=== PATIENT | female | born 1950 | race African-American/Black ===

== ENCOUNTER 2024-02-02 09:41 | Outpatient (CLI) | payer OTHER, MEDICARE, SELFPAY ==
[2024-02-02 09:45] VITALS: BMI 21.9
[2024-02-02 10:45] VITALS: BP 109/71; PULSE 101; RESP 18; TEMP 36.3; O2SAT 97
--- NOTE | 2024-02-02 11:06 | SUR.PREOP ---
Times - Time Out Called: 1053 Procedure Start: 1054 Procedure End:1056 Position and Devices - Position: supine Positioning Devices:pillow under pt's head Pre-Procedure Assessment - Site and Procedure Verified w Patient and/or Others as Appropriate:y Verification Coincides w Consent, H&P, Endoscopy Schedule, and Pre-Op Orders:y X-Rays/Imaging Studies in Room and/or Implants on Site:y Verified Operative Side Marked YES When Applicable:n Preop Assessment Completed By:valeria Du Out - Entire Operative Team Participates and Confirms: y Correct Patient, Procedure, Side/Site and Position: y Availability of Implants, Special Equipment and Requests:y Preop Antibiotics Given within 1 Hour of Incision:n Assessment of Skin Prep Dry Time:y Prep = Surgery Prep Solution:betadine solution Site Prepped:abdomen Prepped By:Dr. Hollingsworth Staff - Child Support Agent:valeria Composite Assembler: Non Pharmacy Medications - Time: Name: Strength: Dose: Route: Site: Given By: Lot Number: Expiration Date: Actual Procedures - Description:Removal of gastrostomy tube and replacement of 18 fr gastrostomy tube Side: Wound Class: Surgeon:Darrick Severity: Preop Diagnosis:displaced gastrostomy tube Postop Diagnosis:gastrostomy tube Transfer Data - Destination:[facility] Transfer Method:stretcher Complications: Untoward Events: Report Given To:Monisha [facility] Rehab Completed Date/Time:02/02/2024 1110 Completed By:valeria HERRERA
--- NOTE | 2024-02-02 11:11 | P.HP_ITS ---
History of Present Illness History of Present Illness Consent: Risks, benefits, and alternatives have been discussed and questions answered. Patient agrees to proceed with procedure. Chief complaint: displaced Gastrostomy tube Narrative: Shanta Galeana is a 73 year old female with h/o hemorrhagic CVA currently in local rehab, her G-tube dislodged yesterday and currently has 18 Fr Greene catheter instead. She is able to have some nutrition by mouth but still using G- tube as extra Review of Systems Review of Systems: All systems reviewed & are unremarkable except as noted in HPI and below PMFSH Past Medical History Medical History (Updated 02/02/24 @ 11:13 by Chong Jimenez MD) Dislodged gastrostomy tube Family History Family History Mother Hypertension Social History Social History Smoking status: Never smoker Alcohol intake: former Substance use: never Substance use type: does not use Living arrangements: other Additional living arrangements comments: REHAB. Spiritual care concerns: No Meds Home Medications and Allergies Home Medications Medication Instructions Recorded Confirmed Type amlodipine 10 mg tablet 10 mg feeding tube DAILY 01/27/24 02/02/24 History lisinopril 5 mg tablet 5 mg feeding tube DAILY 01/27/24 02/02/24 History amantadine HCl 100 mg tablet 100 mg feeding tube DAILY 02/02/24 02/02/24 History heparin (porcine) 5,000 unit/mL 5,000 unit subcut Q12H 02/02/24 02/02/24 History injection solution insulin lispro 100 unit/mL 1 sliding scale dose subcut 02/02/24 02/02/24 History subcutaneous solution USEASDIRECTD rosuvastatin 40 mg tablet 40 mg feeding tube DAILY 02/02/24 02/02/24 History trazodone 100 mg tablet 100 mg feeding tube HS 02/02/24 02/02/24 History Allergies Allergy/AdvReac Type Severity Reaction Status Date / Time No Known Allergies Allergy Verified 02/02/24 11:05 Exam Const: General: no acute distress HENMT: Ears: TM's normal bilaterally Eyes: General: appearance normal, both eyes and all related structures Neck: Neck: supple Resp: Effort & Inspection: normal respiratory effort Auscultation: clear to auscultation bilaterally Cardio: Rate: regular rate Rhythm: regular rhythm GI: Other: greene catheter at gastrostomy site, soft abdomen, + BS Back/Spine/Pelvis: Other: s/p craniotomy, awake and alert Skin: General skin exam: normal color Neuro: Cranial nerves: Yes Equal, round and reactive pupils present Other: Oriented to self only follows basic commands with Hallucinations Assessment and Plan Assessment and plan (1) Dislodged gastrostomy tube: Code(s): T85.528A - Displacement of other gastrointestinal prosthetic devices, implants and grafts, initial encounter Status: Acute Assessment and Plan: will replace for a new G-tube at bedside (2) CVA (cerebral vascular accident): Code(s): I63.9 - Cerebral infarction, unspecified Status: Acute
--- NOTE | 2024-02-02 11:13 | W.PM.PROC2 ---
Procedure Note - Detailed Date of Procedure 02/02/24 Pre-op Diagnosis displaced Gastrostomy tube Post-op Diagnosis Same Procedure Performed replacement of G-tube Surgeon Chong Jimenez MD Anesthesia None Description of Procedure greene catheter was removed after deflated balloon. Then using same gastrostomy site I advanced 18 Fr G-tube, balloon insuflated with 6 ml water and secure in position at 5 cm. Then it was flushed and noted gastric content when was suctioned back. Ok to resume tube feeding as usual, she is going back to rehab
--- NOTE | 2024-02-02 11:17 | SUR.PREOP ---
[facility] Report given to Monisha HERRERA regarding discharge instructions including resuming of all medications and resuming of g-tube feedings. RN voiced understanding.
== END 2024-02-02 11:05 | disposition short-term general hospital (02) ==
PROVIDERS: Visit Provider Internal Medicine Gastroenterology
PROC: 0DH63UZ Insertion of Feeding Device into Stomach, Percutaneous Approach (ICD-10-PCS; CPT 43246; principal; 2024-02-02 12:00)
DX: T85.528A Displacement of other gastrointestinal prosthetic devices, implants and grafts, initial encounter (principal); I63.9 Cerebral infarction, unspecified
CPT/HCPCS: 43762; 99212; G0463

== ENCOUNTER 2024-03-04 09:49 | Inpatient (IN) | payer MEDICARE, OTHER, SELFPAY ==
[2024-03-04] VITALS (24 sets, daily range): BP systolic 100–136; BP diastolic 63–97; PULSE 81–113; RESP 16–24; TEMP 35.9–37.4; O2SAT 91–100; BMI 20.7
--- NOTE | ~2024-03-04 | CT_ITS ---
EXAMINATION: CT abdomen pelvis w con DATE: 03/04/2024 11:52 INDICATION: Urinary tract infection. Fever, sepsis TECHNIQUE: Computed tomography (CT) of the abdomen and pelvis was performed with 100 CC Omnipaque 350 intravenous contrast. Automated exposure control and iterative reconstruction technique were employe d. Exam dose: 433.33 mGy-cm total exam DLP. COMPARISON: None. FINDINGS: There is bibasilar predominantly lower lobe and lingular atelectasis. Cardiomegaly. Monitor device is noted within the left breast. No pericardial or pleural effusion. Diffuse hepatic steatosis. No hepatic, splenic, pancreatic or adrenal space-occupying mass lesion is detected. The gallbladder appears unremarkable. No gallbladder wall thickening or pericholecystic fluid or fat stranding. No bile duct or pancreatic duct dilatation. No renal mass lesion or urinary tract calculus or hydroureteronephrosis. There is mild diffuse thicke citlali of the bladder wall. No fat stranding is noted around the urinary bladder. No intraluminal mass lesion of the urinary bladder is evident.. There is calcification of normal caliber of the abdominal aorta. No intraperitoneal or retroperitonea l pelvic mass lesion or adenopathy or ascites. Gastrostomy tube within the lower body of the stomach. Normal appendix. No bowel obstruction, bowel wall thickening, pneumatosis or intraperitoneal free air is detected. Left inguinal fat-containing hernia. Small fat-containing umbilical hernia. Diffuse osteopenia and moderate anterior wedge compression fracture deformities of T10, L3 and to a l alex extent L5. IMPRESSION: Cardiomegaly Hepatic steatosis Gastrostomy tube within lower gastric body Normal appendix Mild diffuse thickening of urinary bladder wall; cystitis is not excluded. Fat-containing left inguinal and umbilical hernias Compression fracture deformity of T10, L3 and L5 Reviewed, dictated and finalized at [facility]. Reviewed, dictated and finalized at [facility].
--- NOTE | ~2024-03-04 | US_ITS ---
US abdomen limited INDICATION: Elevated liver enzymes PROCEDURE: Realtime right upper abdominal ultrasound. COMPARISON: No prior studies for comparison. FINDINGS: The pancreas is normal without focal mass or pancreatic ductal dilation. Liver echotexture is normal without focal mass or intrahepatic biliary dilatation. There is normal directional flow i n the portal vein. The gallbladder is normal without stones, gallbladder wall thickening or pericholecystic fluid. Comm on bile duct measures 4 mm. No sonographic Ram's sign. IMPRESSION: 1: Normal limited abdominal ultrasound. Reviewed, dictated and finalized at [facility].
--- NOTE | ~2024-03-04 | XR_ITS ---
XR chest 1V portable DATE: 03/04/2024 10:09 INDICATION: Fever, sepsis TECHNIQUE: Portable supine AP view on March 04, 2024 at 1004 hours COMPARISON: None FINDINGS: There is mild infiltrate or atelectasis at the left lung base and to a lesser extent right lung base. Normal heart size. Aortic calcification and mild unfolding. No hilar or mediastinal enlargement. No pleural effusion or pulmonary vascular congestion or pneumoth orax is detected. IMPRESSION: Mild left and minimal right basilar infiltrate or atelectasis Reviewed, dictated and finalized at [facility].
--- NOTE | 2024-03-04 09:57 | ED.FEVER ---
HPI - Fever General Chief Complaint: Fever <MARLO Henry Last Filed: 03/04/24 13:11> Stated Complaint: Fever <MARLO Henry Last Filed: 03/04/24 13:11> Source: patient and old records reviewed <Jade Cruz PA-C - Last Filed: 03/04/24 13:11> Mode of arrival: EMS <MARLO Henry Last Filed: 03/04/24 13:11> Limitations: physical limitation and clinical condition <MARLO Henry Last Filed: 03/04/24 13:11> History of Present Illness HPI Narrative: Patient is a 73 y/o female, with PMH of CVA s/p craniotomy, G-tube, DM, who presents to the ED via EMS with report of fever. Patient is a resident of [facility]. She is A&OX1 at baseline and currently. Per EMS report, ID called for EMS today due to patient having a fever up to 102.2. She was not given anything for her fever. Per [facility] report, patient was recently started on Macrobid for a UTI. Patient unable to provide any information. <MARLO Henry Last Filed: 03/04/24 13:11> Related Data Home Medications: Home Medications Medication Instructions Recorded Confirmed amlodipine 10 mg tablet 10 mg feeding tube DAILY 01/27/24 03/04/24 acetaminophen 325 mg tablet 650 mg feeding tube Q4H PRN Mild 03/04/24 03/04/24 Pain (1-3) Or Fever alprazolam 0.5 mg tablet 0.5 mg feeding tube Q8H PRN 03/04/24 03/04/24 Agitation amantadine HCl 100 mg capsule 100 mg feeding tube BID 03/04/24 03/04/24 atorvastatin 40 mg tablet 40 mg feeding tube HS 03/04/24 03/04/24 bisacodyl 10 mg rectal suppository 10 mg RECTAL DAILY PRN Constipation 03/04/24 03/04/24 (Dulcolax (bisacodyl)) heparin (porcine) 5,000 unit/mL 5,000 unit subcut DAILY 03/04/24 03/04/24 injection solution hydroxyzine pamoate 50 mg capsule 50 mg PO PRN PRN Anxiety 03/04/24 03/04/24 insulin glargine 100 unit/mL (3 8 unit subcut DAILY 03/04/24 03/04/24 mL) subcutaneous pen (Lantus Solostar U-100 Insulin) insulin lispro 100 unit/mL 3 - 6 unit subcut TIDWM 03/04/24 03/04/24 subcutaneous solution (Humalog U-100 Insulin) melatonin 3 mg tablet 6 mg feeding tube HS PRN Insomnia 03/04/24 03/04/24 mirtazapine 7.5 mg tablet 7.5 mg feeding tube DAILY 03/04/24 03/04/24 olanzapine 10 mg tablet 10 mg feeding tube DAILY 03/04/24 03/04/24 trazodone 50 mg tablet 50 mg PO HS PRN Insomnia 03/04/24 03/04/24 <Jade Cruz PA-C - Last Filed: 03/04/24 13:11> Allergies/Adverse Reactions: Allergies Allergy/AdvReac Type Severity Reaction Status Date / Time No Known Allergies Allergy Verified 02/02/24 11:05 <Jade Cruz PA-C - Last Filed: 03/04/24 13:11> Review of Systems Review of Systems: ROS unobtainable: Yes unobtainable due to medical condition and unobtainable due to mental status <Jade Cruz PA-C - Last Filed: 03/04/24 13:11> [facility] Past Medical History Medical History: Medical History (Updated 03/04/24 @ 17:02 by Hattie Mckeon PA-C) Cancer of right breast Hemorrhagic stroke (01/2024) With left-sided hemiparesis and cognitive deficits. Ischemic stroke Type 2 diabetes mellitus <Jade Cruz PA-C - Last Filed: 03/04/24 13:11> Surgical History Surgical History: Surgical History (Updated 03/04/24 @ 16:54 by Hattie Mckeon PA-C) History of cataract extraction History of craniotomy (01/2024) History of evacuation of hematoma (01/2024) History of hysterectomy History of loop recorder History of lumpectomy of right breast <Jade Cruz PA-C - Last Filed: 03/04/24 13:11> Family History Family History: Family History Mother Hypertension <Jade Cruz PA-C - Last Filed: 03/04/24 13:11> Social History Social History: Social History (Updated 03/04/24 @ 16:55 by Hattie Mckeon PA-C) Social History: Surrogate medical decision maker: Denise
[2024-03-04] MEDS: SODIUM CHLORIDE 0.9% IV 1,000 ML 999 ML IV CONT ×2 (10:11→11:00)
[2024-03-04] MEDS: ACETAMINOPHEN ELIXIR 325 MG/10.15 ML UDC 650 MG FEED TUBE ×2 (10:11→20:31)
[2024-03-04 10:27] LABS: Appearance Urine Turbid (Clear); Bacteria Urine 4+ /hpf; Bilirubin Urine Negative (Negative); Blood Urine Trace (Negative); Color Urine Yellow (Yellow); Glucose Urine UA Negative (Negative); Ketones Urine Negative (Negative); Leukocyte Esterase Ur 3+ LEU/UL (Negative); Nitrate Urine Positive (Negative); Protein Urine 1+ mg/dL (Negative); RBC Urine 0-2 /hpf (0-2); Specific Grav Ur 1.015 (1.001-1.035); Squamous Epithelial Cell Urine None Seen /hpf (Few); Urobilinogen Urine 0.2 mg/dL (<2.0); WBC Urine >100 /hpf (0-3); pH Urine 5.5 (5.0-9.0)
[2024-03-04 10:29] LABS: Add Urine Microscopic? YES
[2024-03-04 10:47] LABS: Basophils Percent Auto 0.5 % (0.2-1.2); Eosinophils Percent Auto 0.3 % (0-4.4); Hematocrit 32.6 % (37.0-47.0); Hemoglobin 9.7 g/dL (12.0-15.0); Immature Granulocyte Absolute 0.04 K/mm3 (0.00-0.031); Immature Granulocyte Percent A 0.5 % (0-0.5); Lymphocytes Absolute Auto 1.73 K/mm3 (0.9-3.2); Lymphocytes Percent Auto 19.6 % (18.3-44.2); Mean Corpuscular HGB Conc 29.8 g/dl (32-36); Mean Corpuscular Hemoglobin 29.1 pg (26-34); Mean Corpuscular Volume 97.9 fl (80-100); Mean Platelet Volume 9.4 fl (7.4-10.4); Monocytes Percent Auto 11.2 % (2.6-8.5); Neutrophils Percent Auto 67.9 % (45.5-73.1); Platelet Count Result 251 k/mm3 (150-375); Red Blood Count 3.33 M/mm3 (4.2-5.4); Red Cell Distribution Width 13.5 % (11.5-14.5); White Blood Count 8.8 K/mm3 (4.5-10.0)
[2024-03-04 10:59] LABS: Lactic Acid Reflex 2.1 mmol/L (0.7-2.0)
[2024-03-04 11:00] LABS: INR 1.2; Partial Thromboplastin Time 27.9 Seconds (22.3-36.8); Prothrombin Time 15.9 Seconds (11.1-14.7)
[2024-03-04 11:05] LABS: Alanine Aminotransferase 36 U/L (6-35); Alkaline Phosphatase 105 U/L (38-126); Anion Gap 8 mmol/L (4-12); Aspartate Amino Transferase 33 U/L (14-36); Bilirubin,Total 0.9 mg/dL (0.2-1.3); Blood Urea Nitrogen 39 mg/dL (7-17); CRP < 0.5 mg/dL (<1.0); Calcium 9.8 mg/dL (8.4-10.2); Carbon Dioxide 27 mmol/L (22-30); Chloride 131 mmol/L (98-107); Estimated CRCL calculation 25 ml/min; Estimated Glomerular Filt Rate 41; Glucose 207 mg/dL (65-110); Potassium 3.5 mmol/L (3.4-5.0); Sodium 166 mmol/L (137-145)
[2024-03-04 11:14] LABS: Anisocytosis 1+; Platelet Estimate Adequate (Adequate); Polychromasia 1+
[2024-03-04 11:15] LABS: Schistocytes Rare
[2024-03-04 11:23] LABS: Influenza A QL RT-PCR Negative (Negative); Influenza B QL RT-PCR Negative (Negative); RSV RNA, RT-PCR Negative (Negative); SARS-CoV-2 RNA PCR Negative (Negative)
[2024-03-04 12:18] LABS: Procalcitonin 0.1 ng/mL
[2024-03-04 12:55] LABS: Anion Gap 10 mmol/L (4-12); Blood Urea Nitrogen 35 mg/dL (7-17); Carbon Dioxide 21 mmol/L (22-30); Chloride 132 mmol/L (98-107); Estimated CRCL calculation 30 ml/min; Estimated Glomerular Filt Rate 53; Glucose 161 mg/dL (65-110); Potassium 3.7 mmol/L (3.4-5.0); Sodium 163 mmol/L (137-145)
[2024-03-04 13:44] LABS: Reflex Lactic Acid Yes or No Add Lactic
--- NOTE | 2024-03-04 13:52 | PC.NURSE ---
This patient, Shanta Galeana, was admitted to Medical Room 240-01. Patient/family oriented to hospital policies and general routines including ID bracelet, bed and alarms, visiting hours, pain management, procedures, bathroom and other care routines, personal items, smoking policy, room service/diet, and visiting hours. Information on how to activate the Rapid Response Team has been discussed. Patient/Family are encouraged to report perceived risks to care and to ask questions if they do not understand what they are told or what they should do.
[2024-03-04] MEDS: SODIUM CHLORIDE 0.45% 1,000 ML 55 ML IV CONT (14:14)
--- NOTE | 2024-03-04 14:20 | PM.IMHP ---
H&P: HPI History of Present Illness Date/Time: 03/04/24 14:45 Chief Complaint: Fever. Narrative: This is a 73-year-old female who suffered a hemorrhagic stroke in January 2024 with residual left-sided weakness and cognitive deficits, hypertension, type 2 diabetes mellitus, and anemia who presented to the emergency department via EMS from [facility] for evaluation of a fever. She is unable to provide history and the following is obtained from her EMR as well as information provided by her daughter. She was discharged to [place] on 02/17/2024 after a several week stay at [facility] and according to the patient's daughter, she has been getting along pretty well. She has limited conversations with her daughter but her mentation is much different than prior to the stroke. She is able to eat a soft diet but the facility supplements using a PEG tube if she eats less than 50% of her meal. Today the patient's daughter received a phone call that she was being sent to the emergency department after developing a fever with concerns for a urinary tract infection. She was afebrile on arrival with stable vital signs. Labs were significant for a hemoglobin of 9.7, sodium 166, chloride 131, BUN 39, creatinine 1.50, glucose 207, lactic acid 2.1. Urine was was positive nitrates, leukocyte esterase, bacteria, and greater than 100 WBC were seen on microscopy. Chest x-ray showed mild left and minimal right basilar infiltrate or atelectasis. CT of the abdomen and pelvis did not show any acute findings. She was given a 2 L normal saline bolus and is being admitted in this setting for further treatment. At the time my evaluation she is alert. She does not follow commands or directly answer questions; she babbles which daughter states is new for her. Review of Systems Review of Systems: Unable to obtain accurately given clinical condition. 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 Ischemic stroke Type 2 diabetes mellitus Surgical History Surgical History (Updated 03/04/24 @ 16:54 by Hattie Mckeon PA-C) History of cataract extraction History of craniotomy (01/2024) History of evacuation of hematoma (01/2024) History of hysterectomy History of loop recorder History of lumpectomy of right breast Family History Family History Mother Hypertension Social History Social History (Updated 03/04/24 @ 16:55 by Hattie Mckeon PA-C) Social History: Surrogate medical decision maker: Denise Galeana, daughter. Code status: Full code. Smoking status: Never smoker Alcohol intake: never Substance use: never Substance use type: does not use Living arrangements: [facility] Spiritual care concerns: No Meds Home Medications and Allergies Home Medications Medication Instructions Recorded Confirmed Type amlodipine 10 mg tablet 10 mg feeding tube DAILY 01/27/24 03/04/24 History acetaminophen 325 mg tablet 650 mg feeding tube Q4H PRN Mild 03/04/24 03/04/24 History Pain (1-3) Or Fever alprazolam 0.5 mg tablet 0.5 mg feeding tube Q8H PRN 03/04/24 03/04/24 History Agitation amantadine HCl 100 mg capsule 100 mg feeding tube BID 03/04/24 03/04/24 History atorvastatin 40 mg tablet 40 mg feeding tube HS 03/04/24 03/04/24 History bisacodyl 10 mg rectal suppository 10 mg RECTAL DAILY PRN Constipation 03/04/24 03/04/24 History (Dulcolax (bisacodyl)) heparin (porcine) 5,000 unit/mL 5,000 unit subcut DAILY 03/04/24 03/04/24 History injection solution hydroxyzine pamoate 50 mg capsule 50 mg PO PRN PRN Anxiety 03/04/24 03/04/24 History insulin glargine 100 unit/mL (3 8 unit subcut DAILY 03/04/24 03/04/24 History mL) subcutaneous pen (Lantus Solostar U-100 Insulin) insulin lispro 100 unit/mL 3 - 6
[2024-03-04 14:28] LABS: Lactic Acid 1.4 mmol/L (0.7-2.0)
[2024-03-04 17:12] LABS: Glucose Point of Care 153 mg/dl (65-105)
[2024-03-04 17:39] LABS: Hemoglobin A1C 6.1 % (<5.7)
[2024-03-04 17:41] LABS: Anion Gap 8 mmol/L (4-12); Blood Urea Nitrogen 31 mg/dL (7-17); Calcium 9.4 mg/dL (8.4-10.2); Carbon Dioxide 25 mmol/L (22-30); Chloride 133 mmol/L (98-107); Estimated CRCL calculation 30 ml/min; Estimated Glomerular Filt Rate 59; Glucose 163 mg/dL (65-110); Potassium 3.5 mmol/L (3.4-5.0); Sodium 166 mmol/L (137-145)
[2024-03-04] MEDS: DEXTROSE 5%/0.45% SOD CHL 1,000 ML 75 ML IV CONT (18:27)
[2024-03-04] MEDS: AMANTADINE HCL 100 MG CAPSULE FEED TUBE (18:27)
[2024-03-04 20:00] LABS: Glucose Point of Care 169 mg/dl (65-105)
[2024-03-04] MEDS: MELATONIN 3 MG TABLET 6 MG FEED TUBE (20:30)
[2024-03-04] MEDS: ATORVASTATIN 40 MG TABLET FEED TUBE (20:31)
[2024-03-04 21:22] LABS: Sodium 164 mmol/L (137-145)
[2024-03-05] VITALS (10 sets, daily range): BP systolic 129–132; BP diastolic 55–78; PULSE 81–108; RESP 17–18; TEMP 35.8–36.5; O2SAT 98–100
[2024-03-05 00:01] LABS: Glucose Point of Care 208 mg/dl (65-105)
[2024-03-05] MEDS: INSULIN ASPART (*BKC) 100 UNITS/ML SUB-Q (00:50)
[2024-03-05 01:54] LABS: Sodium 160 mmol/L (137-145)
[2024-03-05 05:49] LABS: Hematocrit 33.1 % (37.0-47.0); Hemoglobin 9.6 g/dL (12.0-15.0); Mean Corpuscular Hemoglobin 29.4 pg (26-34); Mean Corpuscular Volume 101.2 fl (80-100); Mean Platelet Volume 9.6 fl (7.4-10.4); Platelet Count Result 226 k/mm3 (150-375); Red Blood Count 3.27 M/mm3 (4.2-5.4); Red Cell Distribution Width 13.6 % (11.5-14.5); White Blood Count 8.5 K/mm3 (4.5-10.0)
[2024-03-05 05:53] LABS: Glucose Point of Care 164 mg/dl (65-105)
[2024-03-05 06:28] LABS: Anion Gap 11 mmol/L (4-12); Blood Urea Nitrogen 25 mg/dL (7-17); Calcium 9.7 mg/dL (8.4-10.2); Carbon Dioxide 22 mmol/L (22-30); Chloride 131 mmol/L (98-107); Estimated CRCL calculation 36 ml/min; Estimated Glomerular Filt Rate > 60; Glucose 163 mg/dL (65-110); Magnesium 2.6 mg/dL (1.6-2.3); Potassium 3.8 mmol/L (3.4-5.0); Sodium 164 mmol/L (137-145)
[2024-03-05] MEDS: DEXTROSE 5% 1,000 ML 1,000 ML 100 ML IV CONT (08:07)
[2024-03-05] MEDS: OLANZapine 5 MG TABLET 10 MG FEED TUBE (08:09)
[2024-03-05] MEDS: MIRTAZAPINE 7.5 MG TABLET FEED TUBE (08:09)
[2024-03-05] MEDS: AMANTADINE HCL 100 MG CAPSULE FEED TUBE ×2 (08:09→17:46)
[2024-03-05] MEDS: amLODIPine BESYLATE 5 MG TABLET 10 MG FEED TUBE (08:10)
[2024-03-05 11:59] LABS: Glucose Point of Care 190 mg/dl (65-105)
--- NOTE | 2024-03-05 12:10 | PCCCNOTE ---
On 03/05/24, the student, [Rand Sanchez ], provided care and completed [facility] documentation on this patient. I have reviewed the student's documentation and agree with the findings.
[2024-03-05 12:45] LABS: Sodium 162 mmol/L (137-145)
--- NOTE | 2024-03-05 14:12 | PM.IMPN ---
Progress Note: A&P Assessment and Plan (1) Hypernatremia: Code(s): E87.0 - Hyperosmolality and hypernatremia Status: Acute Assessment and Plan: Switch to D5W as she was receiving D5 normal saline overnight Serial sodium Current 162, slowly decreasing (2) Urinary tract infection: Code(s): N39.0 - Urinary tract infection, site not specified Status: Acute Assessment and Plan: Source of fever presumably urinary tract infection. ceftriaxone, pending urine culture. BC pending (3) Metabolic encephalopathy: Code(s): G93.41 - Metabolic encephalopathy Status: Acute Assessment and Plan: Likely secondary to hypernatremia Continue Q4 neuro checks (4) Type 2 diabetes mellitus: Code(s): E11.9 - Type 2 diabetes mellitus without complications Status: Chronic Assessment and Plan: basal insulin. sliding scale insulin Accu-Cheks hypoglycemic protocol (5) Hypertension: Code(s): I10 - Essential (primary) hypertension Status: Chronic Assessment and Plan: Continue home meds Monitor Subjective Date/time seen: 03/05/24 14:12 Interval history: Patient in no acute distress this morning, sitter at bedside. She is alert, mumbles her responses. Attempting to obtain correct orders for G tube feedings, dietary consulted. Speech consulted for evaluation of any PO intake safety. Will continue to treat hypernatremia with D5W, serial sodium. Patient is asymptomatic at this time. Review of Systems Review of Systems: ROS unobtainable: Yes unobtainable due to medical condition and unobtainable due to mental status Exam Narrative: General: Nontoxic-appearing female lying in bed. HEENT: Status post right-sided craniotomy. PERRLA, EOMI. Neck: Supple. Respiratory: Lung sounds are diminished due to poor effort but are otherwise clear to auscultation. Cardiovascular: RRR with S1-S2. Gastrointestinal: Abdomen is soft, flat, nontender, and nondistended with positive bowel sounds. Peg tube in lower abdomen. Skin: Warm and dry. No rash or lesions. Extremities: No cyanosis, clubbing, or edema. Pulses intact Neurological: Alert. She does not answer orientation questions or follow commands. She frequently babbles but does not seem to be producing words. Cranial nerves 2-12 are grossly intact. No obvious facial asymmetry. Moved upper and lower extremities but with left sided weakness. Psychiatric: Pleasantly confused. Objective Data Vital Signs Vital Signs: Vital Signs - 24 hr 03/04/24 16:39 03/04/24 20:33 03/04/24 20:00 Temperature 96.6 F L Pulse Rate 96 100 91 Respiratory Rate 17 Blood Pressure 100/65 Pulse Oximetry 97 Oxygen Delivery 03/05/24 00:00 03/05/24 04:00 03/04/24 20:00 Temperature Pulse Rate 81 81 81 Respiratory Rate 17 Blood Pressure Pulse Oximetry 97 Oxygen Delivery Room Air 03/05/24 05:38 03/05/24 08:27 03/05/24 08:00 Temperature 96.4 F L Pulse Rate 86 101 H Respiratory Rate 17 Blood Pressure 132/64 129/60 Pulse Oximetry 100 Oxygen Delivery Room Air 03/05/24 08:00 03/05/24 12:00 Temperature Pulse Rate 102 H 93 Respiratory Rate Blood Pressure Pulse Oximetry Oxygen Delivery Intake/Output Intake/Output: Intake & Output 03/02/24 03/03/24 03/04/24 03/05/24 23:59 23:59 23:59 23:59 Intake Total 0 571.7 Output Total 0 Balance 2049 571.7 Meds/Results Medications: Active Medications Generic Name Dose Route Start Last Admin Trade Name Freq PRN Reason Stop Dose Admin Acetaminophen 650 mg 03/04/24 12:52 03/04/24 20:31 Acetaminophen Elixir 325 Mg/10.15 Ml Udc FEED TUBE 650 mg Q4H PRN Administration Mild Pain (1-3) or Fever Amantadine HCl 100 mg 03/04/24 17:30 03/05/24 08:09 Amantadine Hcl 100 Mg Capsule FEED TUBE 100 mg BID DEBBIE Administration Amlodipine Besylate 10 mg 03/05/24 09:00
[2024-03-05 16:02] LABS: Sodium 146 mmol/L (137-145)
[2024-03-05] MEDS: SODIUM CHLORIDE 0.9% IV 1,000 ML 75 ML IV CONT (17:06)
[2024-03-05 17:32] LABS: Glucose Point of Care 129 mg/dl (65-105)
[2024-03-05] MEDS: INSULIN GLARGINE (*BKC) 100 UNITS/ML 8 UNITS SUB-Q (17:46)
[2024-03-05 20:28] LABS: Sodium 158 mmol/L (137-145)
[2024-03-05] MEDS: ACETAMINOPHEN ELIXIR 325 MG/10.15 ML UDC 650 MG FEED TUBE (20:42)
[2024-03-05] MEDS: ATORVASTATIN 40 MG TABLET FEED TUBE (20:42)
[2024-03-05] MEDS: MELATONIN 3 MG TABLET 6 MG FEED TUBE (20:43)
[2024-03-06] VITALS (9 sets, daily range): BP systolic 122–129; BP diastolic 66–98; PULSE 85–108; RESP 16–18; TEMP 35.8–36.6; O2SAT 89–100; BMI 25.3
[2024-03-06 00:07] LABS: Glucose Point of Care 78 mg/dl (65-105)
[2024-03-06 00:34] LABS: Sodium 157 mmol/L (137-145)
[2024-03-06 05:46] LABS: Basophils Absolute Auto 0.1 K/mm3 (0.0-0.1); Basophils Percent Auto 0.7 % (0.2-1.2); Eosinophils Absolute Auto 0.2 K/mm3 (0-0.3); Eosinophils Percent Auto 2.7 % (0-4.4); Hematocrit 30.5 % (37.0-47.0); Hemoglobin 9.3 g/dL (12.0-15.0); Immature Granulocyte Absolute 0.05 K/mm3 (0.00-0.031); Immature Granulocyte Percent A 0.6 % (0-0.5); Lymphocytes Absolute Auto 2.19 K/mm3 (0.9-3.2); Lymphocytes Percent Auto 26.9 % (18.3-44.2); Mean Corpuscular HGB Conc 30.5 g/dl (32-36); Mean Corpuscular Hemoglobin 29.3 pg (26-34); Mean Corpuscular Volume 96.2 fl (80-100); Mean Platelet Volume 9.3 fl (7.4-10.4); Monocytes Absolute Auto 0.7 K/mm3 (0.1-0.6); Monocytes Percent Auto 8.1 % (2.6-8.5); Nucleated Red Blood Cells Perc 0.2 % (0.0-0.2); Platelet Count Result 193 k/mm3 (150-375); Red Blood Count 3.17 M/mm3 (4.2-5.4); Red Cell Distribution Width 13.5 % (11.5-14.5); White Blood Count 8.2 K/mm3 (4.5-10.0)
[2024-03-06 06:00] LABS: Anion Gap 9 mmol/L (4-12); Blood Urea Nitrogen 15 mg/dL (7-17); Calcium 9.7 mg/dL (8.4-10.2); Carbon Dioxide 24 mmol/L (22-30); Chloride 127 mmol/L (98-107); Estimated CRCL calculation 36 ml/min; Estimated Glomerular Filt Rate > 60; Glucose 110 mg/dL (65-110); Potassium 3.1 mmol/L (3.4-5.0); Sodium 160 mmol/L (137-145)
[2024-03-06 06:03] LABS: Glucose Point of Care 102 mg/dl (65-105)
[2024-03-06] MEDS: AMANTADINE HCL 100 MG CAPSULE FEED TUBE ×2 (09:04→18:14)
[2024-03-06] MEDS: OLANZapine 5 MG TABLET 10 MG FEED TUBE (09:04)
[2024-03-06] MEDS: amLODIPine BESYLATE 5 MG TABLET 10 MG FEED TUBE (09:04)
[2024-03-06] MEDS: DEXTROSE 5% 1,000 ML 1,000 ML 100 ML IV CONT (09:04)
[2024-03-06] MEDS: POTASSIUM CHLORIDE INJ 40 MEQ in SODIUM CHLORIDE 0.9% IV 500 ML 130 MEQ IVPB (09:04)
[2024-03-06] MEDS: MIRTAZAPINE 7.5 MG TABLET FEED TUBE (09:04)
[2024-03-06 09:16] LABS: Sodium 159 mmol/L (137-145)
--- NOTE | 2024-03-06 09:24 | PCSTNOTE ---
Please refer to the Bedside Swallow Evaluation in the EMR. Patient essentially refused all consistencies no matter how therapist attempted to present the items, per spoon, straw, tip of straw, etc. Please note, silent aspiration cannot be ruled out at bedside.
[2024-03-06 11:48] LABS: Glucose Point of Care 81 mg/dl (65-105)
--- NOTE | 2024-03-06 12:34 | PM.IMPN ---
Progress Note: A&P Assessment and Plan (1) Hypernatremia: Code(s): E87.0 - Hyperosmolality and hypernatremia Status: Acute Assessment and Plan: Switch back to D5W as she was receiving normal saline overnight due to sodium drop to 146 at 1630 believe this may be a false draw as her sodium climbed back up quickly overnight Serial sodiums Current 159, slowly decreasing continue to monitor (2) Urinary tract infection: Code(s): N39.0 - Urinary tract infection, site not specified Status: Acute Assessment and Plan: Source of fever presumably urinary tract infection. ceftriaxone, pending urine culture. prelim culture showing gram neg bacilli BC pending (3) Metabolic encephalopathy: Code(s): G93.41 - Metabolic encephalopathy Status: Acute Assessment and Plan: Likely secondary to hypernatremia Continue Q4 neuro checks (4) Type 2 diabetes mellitus: Code(s): E11.9 - Type 2 diabetes mellitus without complications Status: Chronic Assessment and Plan: basal insulin. sliding scale insulin Accu-Cheks hypoglycemic protocol able to resume tube feeds today per dietary (5) Hypertension: Code(s): I10 - Essential (primary) hypertension Status: Chronic Assessment and Plan: Continue home meds Monitor Subjective Date/time seen: 03/06/24 12:34 Interval history: Patient in no acute distress this morning, sitter at bedside. She is alert, mumbles her responses. Will continue to treat hypernatremia with D5W, serial sodium. Patient is asymptomatic at this time. Tube feedings to resume today per dietary orders as she cannot take in PO. Review of Systems Review of Systems: Unable to obtain accurately given clinical condition. ROS unobtainable: Yes unobtainable due to medical condition and unobtainable due to mental status Exam Narrative: General: Nontoxic-appearing female lying in bed. HEENT: Status post right-sided craniotomy. PERRLA, EOMI. Neck: Supple. Respiratory: Lung sounds are diminished due to poor effort but are otherwise clear to auscultation. Cardiovascular: RRR with S1-S2. Gastrointestinal: Abdomen is soft, flat, nontender, and nondistended with positive bowel sounds. Peg tube in lower abdomen. Skin: Warm and dry. No rash or lesions. Extremities: No cyanosis, clubbing, or edema. Pulses intact Neurological: Alert. She does not answer orientation questions or follow commands. She frequently babbles but does not seem to be producing words. Cranial nerves 2-12 are grossly intact. No obvious facial asymmetry. Moved upper and lower extremities but with left sided weakness. Psychiatric: Pleasantly confused. Objective Data Vital Signs Vital Signs: Vital Signs - 24 hr 03/05/24 15:47 03/05/24 16:00 03/05/24 20:00 Temperature 97.7 F Pulse Rate 108 H 106 H 106 H Respiratory Rate 18 18 Blood Pressure 132/55 L Pulse Oximetry 98 98 Oxygen Delivery Room Air 03/05/24 21:24 03/05/24 20:00 03/06/24 00:00 Temperature 97 F L Pulse Rate 82 88 85 Respiratory Rate 18 Blood Pressure 129/78 Pulse Oximetry 98 Oxygen Delivery 03/06/24 05:21 03/06/24 04:00 03/06/24 08:00 Temperature 96.4 F L Pulse Rate 94 85 Respiratory Rate 17 Blood Pressure 122/98 H Pulse Oximetry 89 L Oxygen Delivery Room Air Intake/Output Intake/Output: Intake & Output 03/03/24 03/04/24 03/05/24 03/06/24 23:59 23:59 23:59 23:59 Intake Total 2050 571.7 Output Total 225 650 Balance 0 346.7 -650 Meds/Results Medications: Active Medications Generic Name Dose Route Start Last Admin Trade Name Freq PRN Reason Stop Dose Admin Acetaminophen 650 mg 03/04/24 12:52 03/05/24 20:42 Acetaminophen Elixir 325 Mg/10.15 Ml Udc FEED TUBE 650 mg Q4H PRN Administration Mild Pain (1-3) or Fever Amantadine HCl 100 mg 03/04/24 17:30 03/06/24 09:04 Amantadine Hcl 10
[2024-03-06 13:08] LABS: Sodium 157 mmol/L (137-145)
[2024-03-06 17:14] LABS: Sodium 155 mmol/L (137-145)
[2024-03-06 18:11] LABS: Glucose Point of Care 180 mg/dl (65-105)
[2024-03-06] MEDS: INSULIN GLARGINE (*BKC) 100 UNITS/ML 8 UNITS SUB-Q (18:14)
[2024-03-06 20:50] LABS: Sodium 154 mmol/L (137-145)
[2024-03-06] MEDS: MELATONIN 3 MG TABLET 6 MG FEED TUBE (21:52)
[2024-03-06] MEDS: ATORVASTATIN 40 MG TABLET FEED TUBE (21:52)
[2024-03-06 23:49] LABS: Glucose Point of Care 173 mg/dl (65-105)
[2024-03-07] VITALS (10 sets, daily range): BP systolic 114–149; BP diastolic 64–75; PULSE 82–104; RESP 18; TEMP 36.1–36.6; O2SAT 98–100
[2024-03-07 00:32] LABS: Sodium 147 mmol/L (137-145)
[2024-03-07] MEDS: DEXTROSE 5% 1,000 ML 1,000 ML 100 ML IV CONT ×2 (03:00→14:00)
[2024-03-07 05:04] LABS: Basophils Percent Auto 0.5 % (0.2-1.2); Eosinophils Absolute Auto 0.2 K/mm3 (0-0.3); Eosinophils Percent Auto 2.5 % (0-4.4); Hematocrit 29.1 % (37.0-47.0); Hemoglobin 8.8 g/dL (12.0-15.0); Immature Granulocyte Absolute 0.06 K/mm3 (0.00-0.031); Immature Granulocyte Percent A 0.8 % (0-0.5); Lymphocytes Absolute Auto 1.85 K/mm3 (0.9-3.2); Lymphocytes Percent Auto 25.3 % (18.3-44.2); Mean Corpuscular HGB Conc 30.2 g/dl (32-36); Mean Corpuscular Hemoglobin 29.3 pg (26-34); Mean Platelet Volume 9.8 fl (7.4-10.4); Monocytes Absolute Auto 0.6 K/mm3 (0.1-0.6); Monocytes Percent Auto 8.5 % (2.6-8.5); Neutrophils Absolute Auto 4.6 K/mm3 (1.3-6.7); Neutrophils Percent Auto 62.4 % (45.5-73.1); Nucleated Red Blood Cells Perc 0.3 % (0.0-0.2); Platelet Count Result 173 k/mm3 (150-375); Red Cell Distribution Width 13.8 % (11.5-14.5); White Blood Count 7.3 K/mm3 (4.5-10.0)
[2024-03-07 05:34] LABS: Anion Gap 5 mmol/L (4-12); Blood Urea Nitrogen 16 mg/dL (7-17); Calcium 9.2 mg/dL (8.4-10.2); Carbon Dioxide 26 mmol/L (22-30); Chloride 119 mmol/L (98-107); Estimated CRCL calculation 41 ml/min; Estimated Glomerular Filt Rate > 60; Glucose 252 mg/dL (65-110); Potassium 3.5 mmol/L (3.4-5.0); Sodium 150 mmol/L (137-145)
[2024-03-07 06:12] LABS: Glucose Point of Care 216 mg/dl (65-105)
[2024-03-07 06:12] LABS: Glucose Point of Care 179 mg/dl (65-105)
[2024-03-07] MEDS: AMANTADINE HCL 100 MG CAPSULE FEED TUBE ×2 (08:29→18:12)
[2024-03-07] MEDS: OLANZapine 5 MG TABLET 10 MG FEED TUBE (08:29)
[2024-03-07] MEDS: MIRTAZAPINE 7.5 MG TABLET FEED TUBE (08:29)
[2024-03-07] MEDS: amLODIPine BESYLATE 5 MG TABLET 10 MG FEED TUBE (08:29)
[2024-03-07 08:38] LABS: Glucose Point of Care 183 mg/dl (65-105)
[2024-03-07 09:01] LABS: Sodium 148 mmol/L (137-145)
--- NOTE | 2024-03-07 09:38 | PCNFU ---
Nutrition Follow-Up Complete: Inadequate Enteral Nutrition Infusion as related to inadequate enteral volume compared to estimated requirements as evidenced by no tube feeding documented given. goal: Meet estimated nutritional needs. Patient is progressing towards goal. We will continue current goal. Pt current nutrition is Glucerna 1.2 at 60 ml/hr. Last recorded weight is 55.1 kg. Bowel Motility: No BM reported at this time. Labs Reviewed:Glu 252, Na 150, Hct 29.1, Hgb 8.8 Meds Noted: Remeron, NovoLog, Lantus, Rocephin, Lipitor. Skin: WNL Additional Notes: Patient seen today for nutrition follow up. Tube feedings are at goal rate of 60 ml/hr, which are providing 1584 kcals/79 gm protein/1063 ml water. Flush 150 ml q 4 hours. Nursing states patient is tolerating tube feedings well. Agree with diet orders. Will monitor weight, labs, skin, meds, tube feeding tolerance every Wednesday and Wednesday.
--- NOTE | 2024-03-07 09:52 | PM.CNNEP ---
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 urine specific gravity normal however, no evidence of polyuria (usually > 3L although I/Os not well documented) serum/urine osmolality pending will check cortisol, prolactin, FSH, and copectin for completeness follow repeat sodium levels (2) Urinary tract infection: Code(s): N39.0 - Urinary tract infection, site not specified Status: Acute Assessment and Plan: admission UA suggestive urine culture with Klebsiella on antibiotics (3) Altered mental status: Code(s): R41.82 - Altered mental status, unspecified Status: Acute Assessment and Plan: due to hypernatremia versus UTI versus both?? complicated by known CVA (reported baseline is A&O x 1) follow mentation with ongoing treatment (4) Hypertension: Code(s): I10 - Essential (primary) hypertension Status: Chronic Assessment and Plan: reasonable control follow trend of hemodynamics (5) Type 2 diabetes mellitus: Code(s): E11.9 - Type 2 diabetes mellitus without complications Status: Chronic Assessment and Plan: follow accu-cheks glycemic control per hospitalists I will continue to follow the patient with you while she remains hospitalized and make further recommendations as deemed necessary. Thank you for allowing me to participate in the care of this patient. History of Present Illness Reason for Consult Consult date: 03/07/24 Reason for consult: hypernatremia Chief Complaint Chief complaint: Sepsis/UTI/MAX/Hypernatremia History of Present Illness Narrative: All the information that I have obtained is from review of the electronic medical record, the accompanying paper chart from a nursing facility, the physician/ nurses involved in the patient's care, and the patient's family at bedside as the patient is currently nonverbal and is unable to provide any history which is complicated by her baseline neurological status. The patient is a 73-year-old female with a past medical history as outlined below presented to [facility] via EMS from her nursing facility for further evaluation of a fever. The patient was recently admitted to her nursing facility in early February of this year after several weeks at [facility] following her acute hospitalization for her acute hemorrhagic stroke in January of 2024 with associated left-sided weakness and cognitive deficits. Following discharge, she had been doing reasonably well with reported limited conversations with her daughter. However, more recently, her mentation has been worse than this. She is able eat a soft diet but the facility has been providing supplemental feedings via her G-tube. She apparently developed a high fever at the nursing facility with a concern for possible urinary tract infection. She was subsequently transferred to [facility] for further assessment. Workup and evaluation emergency room demonstrated the patient to be afebrile and otherwise hemodynamically stable. Routine blood test demonstrated relative anemia with a hemoglobin 9.7 but her chemistry was significant for a sodium of 166, chloride 131, BUN of 39, and a creatinine of 1.50 in association with a mild lactic acidosis of 2.1. Her urinalysis was highly suggestive of urinary tract infection with positive nitrates, positive leukocyte esterase, bacteria, and greater than 100 white blood cells. Her chest x-ray was otherwise negative and a CT scan of the abdomen pelvis did not demonstrate any acute pathology either. While in the emergency room,
--- NOTE | 2024-03-07 10:11 | P.PNIM_ITS ---
Progress Note: A&P Assessment and Plan (1) Hypernatremia: Code(s): E87.0 - Hyperosmolality and hypernatremia Status: Acute Assessment and Plan: 03/06/24: * Switch back to D5W as she was receiving normal saline overnight due to sodium drop to 146 at 1630 * believe this may be a false draw as her sodium climbed back up quickly overnight * Serial sodiums * Current 159, slowly decreasing * continue to monitor 03/07/24: * Na+ 148 today * ? 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 * Will obtain urine sodium, urine osmolarity, serum osmolarity * Continue with free water flushes, nephrology increased free water flushes to 200ml/hr * Consult placed to nephrology for further assistance * Strict I and O * Continue to monitor neuro status * Continue to trend labs (2) Urinary tract infection: Code(s): N39.0 - Urinary tract infection, site not specified Status: Acute Assessment and Plan: 03/06/24: * Source of fever presumably urinary tract infection. * ceftriaxone, pending urine culture. * prelim culture showing gram neg bacilli * BC pending 03/07/24: * Urine culture still showing Klebsiella pneumoniae * Blood culture showing no growth on preliminary read * Stop Rocephin and start Levofloxacin (3) Metabolic encephalopathy: Code(s): G93.41 - Metabolic encephalopathy Status: Acute Assessment and Plan: 03/06/24: * Likely secondary to hypernatremia * Continue Q4 neuro checks 03/07/24: * Continue neuro checks * Nephrology consulted (4) Type 2 diabetes mellitus: Code(s): E11.9 - Type 2 diabetes mellitus without complications Status: Chronic Assessment and Plan: 03/06/24: * basal insulin. * sliding scale insulin * Accu-Cheks * hypoglycemic protocol * able to resume tube feeds today per dietary 03/07/24: * BG 148-150 * No change to current treatment plan (5) Hypertension: Code(s): I10 - Essential (primary) hypertension Status: Chronic Assessment and Plan: 03/06/24: * Continue home meds * Monitor 03/07/24: * B/P ranging 124/64-145/66 * Continue with current treatment plan Time Spent With Patient Time with patient: Greater than 35 minutes Subjective Date/time seen: 03/07/24 10:11 Interval history: This is a 73-year-old female with a significant past medical history hemorrhagic stroke in January of 2024 with left-sided residual weakness and cognitive deficits who presented to the hospital on 03/04/2024 from [facility] for evaluation of a fever. Workup in the hospital included a head CT which shown a 7 mm leftward midline shift, hyperdensity involving the right basal ganglia and right temporal parietal region which may be hematoma. Chest x-ray shows mild left and minimal right basilar infiltrate or atelectasis. Abdomen pelvis CT showed hepatic steatosis, mild diffuse thickening of urinary bladder wall, cystitis is not excluded, fat containing left inguinal and umbilical or hernias, compression fracture deformity of T10, L3, and L5. A UA was performed which showed 1+ urine protein, positive nitrate, 3+ leukocyte, greater than 100 urine wbc's, 4+ urine bacteria. Initial Labs revealed a normal white blood count of 8.8, hemoglobin 9.7, sodium 166, chloride 131, creatinine 1.5, EGFR 41, lactic acid 2.1, ALT 36. Urine culture showing Klebsiella pneumoniae. Blood cultures are showing no growth on preliminary read. Patient was started on Rocep
--- NOTE | 2024-03-07 10:11 | PM.IMPN ---
Progress Note: A&P Assessment and Plan (1) Hypernatremia: Code(s): E87.0 - Hyperosmolality and hypernatremia Status: Acute Assessment and Plan: 03/06/24: Switch back to D5W as she was receiving normal saline overnight due to sodium drop to 146 at 1630 believe this may be a false draw as her sodium climbed back up quickly overnight Serial sodiums Current 159, slowly decreasing continue to monitor 03/07/24: Na+ 148 today ? 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 Will obtain urine sodium, urine osmolarity, serum osmolarity Continue with free water flushes, nephrology increased free water flushes to 200ml/hr Consult placed to nephrology for further assistance Strict I and O Continue to monitor neuro status Continue to trend labs (2) Urinary tract infection: Code(s): N39.0 - Urinary tract infection, site not specified Status: Acute Assessment and Plan: 03/06/24: Source of fever presumably urinary tract infection. ceftriaxone, pending urine culture. prelim culture showing gram neg bacilli BC pending 03/07/24: Urine culture still showing Klebsiella pneumoniae Blood culture showing no growth on preliminary read Stop Rocephin and start Levofloxacin (3) Metabolic encephalopathy: Code(s): G93.41 - Metabolic encephalopathy Status: Acute Assessment and Plan: 03/06/24: Likely secondary to hypernatremia Continue Q4 neuro checks 03/07/24: Continue neuro checks Nephrology consulted (4) Type 2 diabetes mellitus: Code(s): E11.9 - Type 2 diabetes mellitus without complications Status: Chronic Assessment and Plan: 03/06/24: basal insulin. sliding scale insulin Accu-Cheks hypoglycemic protocol able to resume tube feeds today per dietary 03/07/24: BG 148-150 No change to current treatment plan (5) Hypertension: Code(s): I10 - Essential (primary) hypertension Status: Chronic Assessment and Plan: 03/06/24: Continue home meds Monitor 03/07/24: B/P ranging 124/64-145/66 Continue with current treatment plan Time Spent With Patient Time with patient: Greater than 35 minutes Subjective Date/time seen: 03/07/24 10:11 Interval history: This is a 73-year-old female with a significant past medical history hemorrhagic stroke in January of 2024 with left-sided residual weakness and cognitive deficits who presented to the hospital on 03/04/2024 from [facility] for evaluation of a fever. Workup in the hospital included a head CT which shown a 7 mm leftward midline shift, hyperdensity involving the right basal ganglia and right temporal parietal region which may be hematoma. Chest x-ray shows mild left and minimal right basilar infiltrate or atelectasis. Abdomen pelvis CT showed hepatic steatosis, mild diffuse thickening of urinary bladder wall, cystitis is not excluded, fat containing left inguinal and umbilical or hernias, compression fracture deformity of T10, L3, and L5. A UA was performed which showed 1+ urine protein, positive nitrate, 3+ leukocyte, greater than 100 urine wbc's, 4+ urine bacteria. Initial Labs revealed a normal white blood count of 8.8, hemoglobin 9.7, sodium 166, chloride 131, creatinine 1.5, EGFR 41, lactic acid 2.1, ALT 36. Urine culture showing Klebsiella pneumoniae. Blood cultures are showing no growth on preliminary read. Patient was started on Rocephin and we will switch to levofloxacin today. We will also get Nephrology on board for her hypernatremia which could likely be central diabetes insipidus considering hemorrhagic stroke history in January of 2024. We will go ahead and obtain serum osmolarity, urine osmolarity, and urine sodium. On examination today patient is alert and somewhat cooperative today. There is a sitter at the bedside with her as she is confused. Labs today shown Hg
[2024-03-07 12:13] LABS: Thyroid Stimulating Hormone Reflex 0.541 uIU/mL (0.465-4.68)
[2024-03-07 12:40] LABS: Sodium 135 mmol/L (137-145)
[2024-03-07 13:19] LABS: Glucose Point of Care 199 mg/dl (65-105)
[2024-03-07] MEDS: levoFLOXacin 750 MG TABLET PO (13:19)
[2024-03-07 14:30] LABS: Appearance Urine Clear (Clear); Bilirubin Urine Negative (Negative); Blood Urine Negative (Negative); Color Urine Yellow (Yellow); Glucose Urine UA Negative (Negative); Ketones Urine Negative (Negative); Leukocyte Esterase Ur Negative LEU/UL (Negative); Nitrate Urine Negative (Negative); Protein Urine Negative (Negative); Specific Grav Ur 1.013 (1.001-1.035); Urobilinogen Urine 0.2 mg/dL (<2.0); pH Urine 5.5 (5.0-9.0)
[2024-03-07 14:37] LABS: Creatinine Urine 57.8 mg/dL
[2024-03-07 14:39] LABS: Sodium Urine Random 56 meq/L
[2024-03-07 14:47] LABS: Urea Random Urine 588 MG/DL
[2024-03-07 14:48] LABS: Add Urine Microscopic? NO
[2024-03-07 17:00] LABS: Sodium 144 mmol/L (137-145)
[2024-03-07] MEDS: INSULIN GLARGINE (*BKC) 100 UNITS/ML 8 UNITS SUB-Q (18:12)
[2024-03-07 20:15] LABS: Glucose Point of Care 165 mg/dl (65-105)
[2024-03-07] MEDS: MELATONIN 3 MG TABLET 6 MG FEED TUBE (21:57)
[2024-03-07] MEDS: ATORVASTATIN 40 MG TABLET FEED TUBE (21:57)
[2024-03-07 23:56] LABS: Glucose Point of Care 147 mg/dl (65-105)
[2024-03-08] VITALS (10 sets, daily range): BP systolic 100–137; BP diastolic 60–79; PULSE 89–108; RESP 16–18; TEMP 36.2–36.9; O2SAT 94–99
[2024-03-08 05:08] LABS: Anion Gap 5 mmol/L (4-12); Blood Urea Nitrogen 16 mg/dL (7-17); Calcium 8.8 mg/dL (8.4-10.2); Carbon Dioxide 27 mmol/L (22-30); Chloride 112 mmol/L (98-107); Estimated CRCL calculation 53 ml/min; Estimated Glomerular Filt Rate > 60; Glucose 176 mg/dL (65-110); Potassium 3.7 mmol/L (3.4-5.0); Sodium 144 mmol/L (137-145)
[2024-03-08 05:46] LABS: Cortisol Random 8.55 ug/dL
[2024-03-08] MEDS: DEXTROSE 5% 1,000 ML 1,000 ML 60 ML IV CONT (06:22)
[2024-03-08 06:27] LABS: Glucose Point of Care 190 mg/dl (65-105)
--- NOTE | 2024-03-08 08:11 | P.PNIM_ITS ---
Progress Note: A&P Assessment and Plan (1) Hypernatremia: Code(s): E87.0 - Hyperosmolality and hypernatremia Status: Acute Assessment and Plan: 03/06/24: * Switch back to D5W as she was receiving normal saline overnight due to sodium drop to 146 at 1630 * believe this may be a false draw as her sodium climbed back up quickly overnight * Serial sodiums * Current 159, slowly decreasing * continue to monitor 03/07/24: * Na+ 148 today * ? 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 * Will obtain urine sodium, urine osmolarity, serum osmolarity * Continue with free water flushes, nephrology increased free water flushes to 200ml/q4h * Consult placed to nephrology for further assistance * Strict I and O * Continue to monitor neuro status * Continue to trend labs 03/08/24: * Sodium today is 144 * Urine sodium, urine osmolarity, serum osmolarity are still pending * Continue with free water flushes at 200 ml/q4h * Nephrology following * Continue strict I&O * Cortisol level was 8.55 * Continue to trend labs * Continue neuro checks (2) Urinary tract infection: Code(s): N39.0 - Urinary tract infection, site not specified Status: Acute Assessment and Plan: 03/06/24: * Source of fever presumably urinary tract infection. * ceftriaxone, pending urine culture. * prelim culture showing gram neg bacilli * BC pending 03/07/24: * Urine culture still showing Klebsiella pneumoniae * Blood culture showing no growth on preliminary read * Stop Rocephin and start Levofloxacin 03/08/24: * Blood cultures showing no growth preliminary read * Continue with levofloxacin (3) Metabolic encephalopathy: Code(s): G93.41 - Metabolic encephalopathy Status: Acute Assessment and Plan: 03/06/24: * Likely secondary to hypernatremia * Continue Q4 neuro checks 03/07/24: * Continue neuro checks * Nephrology consulted 03/08/24: * No change to curret treatment plan (4) Type 2 diabetes mellitus: Code(s): E11.9 - Type 2 diabetes mellitus without complications Status: Chronic Assessment and Plan: 03/06/24: * basal insulin. * sliding scale insulin * Accu-Cheks * hypoglycemic protocol * able to resume tube feeds today per dietary 03/07/24: * BG 148-150 * No change to current treatment plan 03/08/24: * No change to current treatment plan (5) Hypertension: Code(s): I10 - Essential (primary) hypertension Status: Chronic Assessment and Plan: 03/06/24: * Continue home meds * Monitor 03/07/24: * B/P ranging 124/64-145/66 * Continue with current treatment plan 03/08/24: * No change to current treatment plan Time Spent With Patient Time with patient: Greater than 35 minutes Subjective Date/time seen: 03/08/24 08:11 Interval history: 03/07/24: This is a 73-year-old female with a significant past medical history hemorrhagic stroke in January of 2024 with left-sided residual weakness and cognitive deficits who presented to the hospital on 03/04/2024 from [facility] for evaluation of a fever. Workup in the hospital included a head CT which shown a 7 mm leftward midline shift, hyperdensity involving the right basal ganglia and right temporal parietal region which may be hematoma. Chest x-ray shows mild left and minimal right basilar infiltrate or atelectasis. Abdomen pelvis CT showed hepatic steatosis,
--- NOTE | 2024-03-08 08:11 | PM.IMPN ---
Progress Note: A&P Assessment and Plan (1) Hypernatremia: Code(s): E87.0 - Hyperosmolality and hypernatremia Status: Acute Assessment and Plan: 03/06/24: Switch back to D5W as she was receiving normal saline overnight due to sodium drop to 146 at 1630 believe this may be a false draw as her sodium climbed back up quickly overnight Serial sodiums Current 159, slowly decreasing continue to monitor 03/07/24: Na+ 148 today ? 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 Will obtain urine sodium, urine osmolarity, serum osmolarity Continue with free water flushes, nephrology increased free water flushes to 200ml/q4h Consult placed to nephrology for further assistance Strict I and O Continue to monitor neuro status Continue to trend labs 03/08/24: Sodium today is 144 Urine sodium, urine osmolarity, serum osmolarity are still pending Continue with free water flushes at 200 ml/q4h Nephrology following Continue strict I&O Cortisol level was 8.55 Continue to trend labs Continue neuro checks (2) Urinary tract infection: Code(s): N39.0 - Urinary tract infection, site not specified Status: Acute Assessment and Plan: 03/06/24: Source of fever presumably urinary tract infection. ceftriaxone, pending urine culture. prelim culture showing gram neg bacilli BC pending 03/07/24: Urine culture still showing Klebsiella pneumoniae Blood culture showing no growth on preliminary read Stop Rocephin and start Levofloxacin 03/08/24: Blood cultures showing no growth preliminary read Continue with levofloxacin (3) Metabolic encephalopathy: Code(s): G93.41 - Metabolic encephalopathy Status: Acute Assessment and Plan: 03/06/24: Likely secondary to hypernatremia Continue Q4 neuro checks 03/07/24: Continue neuro checks Nephrology consulted 03/08/24: No change to curret treatment plan (4) Type 2 diabetes mellitus: Code(s): E11.9 - Type 2 diabetes mellitus without complications Status: Chronic Assessment and Plan: 03/06/24: basal insulin. sliding scale insulin Accu-Cheks hypoglycemic protocol able to resume tube feeds today per dietary 03/07/24: BG 148-150 No change to current treatment plan 03/08/24: No change to current treatment plan (5) Hypertension: Code(s): I10 - Essential (primary) hypertension Status: Chronic Assessment and Plan: 03/06/24: Continue home meds Monitor 03/07/24: B/P ranging 124/64-145/66 Continue with current treatment plan 03/08/24: No change to current treatment plan Time Spent With Patient Time with patient: Greater than 35 minutes Subjective Date/time seen: 03/08/24 08:11 Interval history: 03/07/24: This is a 73-year-old female with a significant past medical history hemorrhagic stroke in January of 2024 with left-sided residual weakness and cognitive deficits who presented to the hospital on 03/04/2024 from [facility] for evaluation of a fever. Workup in the hospital included a head CT which shown a 7 mm leftward midline shift, hyperdensity involving the right basal ganglia and right temporal parietal region which may be hematoma. Chest x-ray shows mild left and minimal right basilar infiltrate or atelectasis. Abdomen pelvis CT showed hepatic steatosis, mild diffuse thickening of urinary bladder wall, cystitis is not excluded, fat containing left inguinal and umbilical or hernias, compression fracture deformity of T10, L3, and L5. A UA was performed which showed 1+ urine protein, positive nitrate, 3+ leukocyte, greater than 100 urine wbc's, 4+ urine bacteria. Initial Labs revealed a normal white blood count of 8.8, hemoglobin 9.7, sodium 166, chloride 131, creatinine 1.5, EGFR 41, lactic acid 2.1, ALT 36. Urine culture showing Klebsiella pneumoniae. Blood cultures are
[2024-03-08] MEDS: amLODIPine BESYLATE 5 MG TABLET 10 MG FEED TUBE (09:07)
[2024-03-08] MEDS: MIRTAZAPINE 7.5 MG TABLET FEED TUBE (09:07)
[2024-03-08] MEDS: AMANTADINE HCL 100 MG CAPSULE FEED TUBE ×2 (09:07→17:04)
[2024-03-08] MEDS: OLANZapine 5 MG TABLET 10 MG FEED TUBE (09:07)
[2024-03-08 11:23] LABS: Sodium 143 mmol/L (137-145)
[2024-03-08 12:08] LABS: Glucose Point of Care 161 mg/dl (65-105)
--- NOTE | 2024-03-08 12:40 | P.PNNP_ITS ---
Progress Note: A&P Assessment and Plan (1) Hypernatremia: Code(s): E87.0 - Hyperosmolality and hypernatremia Status: Acute Assessment and Plan: * slow improvement noted * continue free water flushes * concern is for diabetes insipidus (seems less likely): * no evidence of polyuria (usually UOP > 3L) * serum and urine osmolality pending * urine specific gravity normal * cortisol level lowish - consider cosyntropin stim test * follow-up on prolactin, FSH, and copectin * weaned off D5W IVFs * follow repeat sodium levels (2) Urinary tract infection: Code(s): N39.0 - Urinary tract infection, site not specified Status: Acute Assessment and Plan: * admission UA suggestive * urine culture with Klebsiella * on antibiotics (3) Altered mental status: Code(s): R41.82 - Altered mental status, unspecified Status: Acute Assessment and Plan: * due to hypernatremia versus UTI versus both?? * follow mentation with ongoing treatment (4) Hypertension: Code(s): I10 - Essential (primary) hypertension Status: Chronic Assessment and Plan: * reasonable control * follow trend of hemodynamics (5) Type 2 diabetes mellitus: Code(s): E11.9 - Type 2 diabetes mellitus without complications Status: Chronic Assessment and Plan: * follow accu-cheks * glycemic control per hospitalists Will continue to follow. Subjective Date/time seen: 03/08/24 12:40 Interval history: Follow-up for acute hypernatremia. Sodium has improved in the last 24 hours with adjustments in free water flushes and D5W IVFs; off IVFs at this time; no other apparent issues or concerns to report at this time; no events overnight or earlier this morning. Exam Narrative: General: elderly female in NAD Heart: normal S1 and S2; no rub Lungs: clear to auscultation Abdomen: soft, nontender, nondistended, positive bowel sounds Extremities: no cyanosis or clubbing; no edema Skin: warm and dry Objective Data Vital Signs Vital Signs: Vital Signs Temp Pulse Resp BP Pulse Ox O2 Del Method 03/08/24 08:00 Room Air 03/08/24 06:00 97.6 F 95 16 125/73 95 03/08/24 04:53 97.2 F L 98 18 137/79 94 03/08/24 04:14 89 03/08/24 00:00 105 H 03/07/24 20:00 97 03/07/24 20:00 Room Air 03/07/24 20:37 97.4 F L 95 18 125/75 98 03/07/24 18:07 96.9 F L 104 H 18 114/64 99 Intake/Output Intake/Output: Intake & Output 03/05/24 03/06/24 03/07/24 03/08/24 23:59 23:59 23:59 23:59 Intake Total 571.7 50 4509.3 1199.7 Output Total 225 1350 1350 1300 Balance 346.7 -1300 3159.3 -100.3 Meds/Results Medications: Active Medications Generic Name Dose Route Start Last Admin Trade Name Freq PRN Reason Stop Dose Admin Acetaminophen 650 mg 03/04/24 12:52 03/05/24 20:42 Acetaminophen Elixir 325 Mg/10.15 Ml Udc FEED TUBE 650 mg Q4H PRN Administration Mild Pain (1-3) or Fever Amantadine HCl 100 mg 03/04/24 17:30 03/08/24 17:04 Amantadine Hcl 100 Mg Capsule FEED TUBE 100 mg BID DEBBIE
--- NOTE | 2024-03-08 12:40 | PM.PNNEP ---
Progress Note: A&P Assessment and Plan (1) Hypernatremia: Code(s): E87.0 - Hyperosmolality and hypernatremia Status: Acute Assessment and Plan: slow improvement noted continue free water flushes concern is for diabetes insipidus (seems less likely): no evidence of polyuria (usually UOP > 3L) serum and urine osmolality pending urine specific gravity normal cortisol level lowish - consider cosyntropin stim test follow-up on prolactin, FSH, and copectin weaned off D5W IVFs follow repeat sodium levels (2) Urinary tract infection: Code(s): N39.0 - Urinary tract infection, site not specified Status: Acute Assessment and Plan: admission UA suggestive urine culture with Klebsiella on antibiotics (3) Altered mental status: Code(s): R41.82 - Altered mental status, unspecified Status: Acute Assessment and Plan: due to hypernatremia versus UTI versus both?? follow mentation with ongoing treatment (4) Hypertension: Code(s): I10 - Essential (primary) hypertension Status: Chronic Assessment and Plan: reasonable control follow trend of hemodynamics (5) Type 2 diabetes mellitus: Code(s): E11.9 - Type 2 diabetes mellitus without complications Status: Chronic Assessment and Plan: follow accu-cheks glycemic control per hospitalists Will continue to follow. Subjective Date/time seen: 03/08/24 12:40 Interval history: Follow-up for acute hypernatremia. Sodium has improved in the last 24 hours with adjustments in free water flushes and D5W IVFs; off IVFs at this time; no other apparent issues or concerns to report at this time; no events overnight or earlier this morning. Exam Narrative: General: elderly female in NAD Heart: normal S1 and S2; no rub Lungs: clear to auscultation Abdomen: soft, nontender, nondistended, positive bowel sounds Extremities: no cyanosis or clubbing; no edema Skin: warm and dry Objective Data Vital Signs Vital Signs: Vital Signs Temp Pulse Resp BP Pulse Ox O2 Del Method 03/08/24 08:00 Room Air 03/08/24 06:00 97.6 F 95 16 125/73 95 03/08/24 04:53 97.2 F L 98 18 137/79 94 03/08/24 04:14 89 03/08/24 00:00 105 H 03/07/24 20:00 97 03/07/24 20:00 Room Air 03/07/24 20:37 97.4 F L 95 18 125/75 98 03/07/24 18:07 96.9 F L 104 H 18 114/64 99 Intake/Output Intake/Output: Intake & Output 03/05/24 03/06/24 03/07/24 03/08/24 23:59 23:59 23:59 23:59 Intake Total 571.7 50 4509.3 1199.7 Output Total 225 1350 1350 1300 Balance 346.7 -1300 3159.3 -100.3 Meds/Results Medications: Active Medications Generic Name Dose Route Start Last Admin Trade Name Freq PRN Reason Stop Dose Admin Acetaminophen 650 mg 03/04/24 12:52 03/05/24 20:42 Acetaminophen Elixir 325 Mg/10.15 Ml Udc FEED TUBE 650 mg Q4H PRN Administration Mild Pain (1-3) or Fever Amantadine HCl 100 mg 03/04/24 17:30 03/08/24 17:04 Amantadine Hcl 100 Mg Capsule FEED TUBE 100 mg BID DEBBIE Administration Amlodipine Besylate 10 mg 03/05/24 09:00 03/08/24 09:07 Amlodipine Besylate 5 Mg Tablet FEED TUBE 10 mg DAILY DEBBIE Administration Atorvastatin Calcium 40 mg 03/04/24 21:00 03/07/24 21:57 Atorvastatin 40 Mg Tablet FEED TUBE 40 mg HS DEBBIE Administration Bisacodyl 10 mg 03/04/24 17:06 Bisacodyl 10 Mg Suppository RECTAL DAILY PRN Constipation Dextrose 12.5 gm 03/04/24 17:05 Dextrose 50% 25 Gm/50 Ml Syringe IV PUSH PRN PRN Hypoglycemia Protocol Glucagon 1 mg 03/04/24 17:05 Glucagon For Inj 1 Mg Vial IM PRN PRN Hypoglycemia Protocol Glucose 15 gm 03/04/24 17:05 Glucose Oral Gel 15 Gm Of Glucse In 37.5 Gm Tube PO PRN PRN Hypoglycemia Protocol Dextrose 1,000 mls @ 100 mls/hr 03/04/24 17:05 Dextr
--- NOTE | 2024-03-08 14:10 | PCDIET ---
Physician consult for bolus tube feedings. Spoke with Hospitalist today, tube feedings changed to 320 ml 4 x per day with 200 ml water flush. Tube feedings providing 1536 kcals/77 gm protein/1030 ml water. Nursing is aware of diet changes. Thank you for the consult.
[2024-03-08] MEDS: levoFLOXacin 750 MG TABLET FEED TUBE (14:21)
[2024-03-08 18:11] LABS: Sodium 144 mmol/L (137-145)
[2024-03-08 18:12] LABS: Glucose Point of Care 229 mg/dl (65-105)
[2024-03-08] MEDS: INSULIN ASPART (*BKC) 100 UNITS/ML SUB-Q ×2 (18:21→23:50)
[2024-03-08] MEDS: INSULIN GLARGINE (*BKC) 100 UNITS/ML 8 UNITS SUB-Q (18:21)
[2024-03-08 19:50] LABS: Glucose Point of Care 178 mg/dl (65-105)
[2024-03-08] MEDS: ATORVASTATIN 40 MG TABLET FEED TUBE (20:16)
[2024-03-08 23:45] LABS: Glucose Point of Care 206 mg/dl (65-105)
[2024-03-09] VITALS (9 sets, daily range): BP systolic 122–133; BP diastolic 62–63; PULSE 96–106; RESP 17–19; TEMP 36.5–36.7; O2SAT 96–98
[2024-03-09 05:08] LABS: Alanine Aminotransferase 684 U/L (6-35); Albumin Level 3.6 g/dL (3.5-5.1); Alkaline Phosphatase 193 U/L (38-126); Anion Gap 5 mmol/L (4-12); Aspartate Amino Transferase 733 U/L (14-36); Bilirubin,Total 0.6 mg/dL (0.2-1.3); Blood Urea Nitrogen 20 mg/dL (7-17); Calcium 8.9 mg/dL (8.4-10.2); Carbon Dioxide 28 mmol/L (22-30); Chloride 110 mmol/L (98-107); Estimated CRCL calculation 46 ml/min; Estimated Glomerular Filt Rate > 60; Glucose 261 mg/dL (65-110); Potassium 4.3 mmol/L (3.4-5.0); Sodium 143 mmol/L (137-145)
[2024-03-09 05:35] LABS: Glucose Point of Care 222 mg/dl (65-105)
[2024-03-09 05:41] LABS: Basophils Percent Auto 0.5 % (0.2-1.2); Eosinophils Absolute Auto 0.1 K/mm3 (0-0.3); Eosinophils Percent Auto 1.6 % (0-4.4); Hematocrit 28.6 % (37.0-47.0); Immature Granulocyte Absolute 0.08 K/mm3 (0.00-0.031); Immature Granulocyte Percent A 1.3 % (0-0.5); Lymphocytes Absolute Auto 1.53 K/mm3 (0.9-3.2); Mean Corpuscular HGB Conc 31.5 g/dl (32-36); Mean Corpuscular Hemoglobin 29.2 pg (26-34); Mean Corpuscular Volume 92.9 fl (80-100); Mean Platelet Volume 9.8 fl (7.4-10.4); Monocytes Absolute Auto 0.5 K/mm3 (0.1-0.6); Monocytes Percent Auto 7.5 % (2.6-8.5); Neutrophils Absolute Auto 4.2 K/mm3 (1.3-6.7); Neutrophils Percent Auto 65.1 % (45.5-73.1); Platelet Count Result 177 k/mm3 (150-375); Red Blood Count 3.08 M/mm3 (4.2-5.4); Red Cell Distribution Width 13.9 % (11.5-14.5); White Blood Count 6.4 K/mm3 (4.5-10.0)
[2024-03-09] MEDS: INSULIN ASPART (*BKC) 100 UNITS/ML SUB-Q ×2 (05:46→12:11)
[2024-03-09 05:53] LABS: Alanine Aminotransferase 668 U/L (6-35); Albumin Level 3.6 g/dL (3.5-5.1); Alkaline Phosphatase 200 U/L (38-126); Anion Gap 5 mmol/L (4-12); Aspartate Amino Transferase 681 U/L (14-36); Bilirubin,Total 0.5 mg/dL (0.2-1.3); Blood Urea Nitrogen 20 mg/dL (7-17); Calcium 8.8 mg/dL (8.4-10.2); Carbon Dioxide 29 mmol/L (22-30); Chloride 107 mmol/L (98-107); Estimated CRCL calculation 52 ml/min; Estimated Glomerular Filt Rate > 60; Glucose 231 mg/dL (65-110); Potassium 3.8 mmol/L (3.4-5.0); Sodium 141 mmol/L (137-145)
--- NOTE | 2024-03-09 07:29 | P.PNIM_ITS ---
Progress Note: A&P Assessment and Plan (1) Hypernatremia: Code(s): E87.0 - Hyperosmolality and hypernatremia Status: Acute Assessment and Plan: 03/06/24: * Switch back to D5W as she was receiving normal saline overnight due to sodium drop to 146 at 1630 * believe this may be a false draw as her sodium climbed back up quickly overnight * Serial sodiums * Current 159, slowly decreasing * continue to monitor 03/07/24: * Na+ 148 today * ? 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 * Will obtain urine sodium, urine osmolarity, serum osmolarity * Continue with free water flushes, nephrology increased free water flushes to 200ml/q4h * Consult placed to nephrology for further assistance * Strict I and O * Continue to monitor neuro status * Continue to trend labs 03/08/24: * Sodium today is 144 * Urine sodium, urine osmolarity, serum osmolarity are still pending * Continue with free water flushes at 200 ml/q4h * Nephrology following * Continue strict I&O * Cortisol level was 8.55 * Continue to trend labs * Continue neuro checks 03/09/24: * Sodium level today is 141 * Urine osmolarity, serum osmolarity are still pending * Urine sodium 56 * Continue with current treatment plan (2) Urinary tract infection: Code(s): N39.0 - Urinary tract infection, site not specified Status: Acute Assessment and Plan: 03/06/24: * Source of fever presumably urinary tract infection. * ceftriaxone, pending urine culture. * prelim culture showing gram neg bacilli * BC pending 03/07/24: * Urine culture still showing Klebsiella pneumoniae * Blood culture showing no growth on preliminary read * Stop Rocephin and start Levofloxacin 03/08/24: * Blood cultures showing no growth preliminary read * Continue with levofloxacin 03/09/24: * Blood cultures showing no growth on preliminary read * Levaquin discontinued and patient was transitioned on to Bactrim due to increased liver enzymes * AST 681, ALT 668 (3) Metabolic encephalopathy: Code(s): G93.41 - Metabolic encephalopathy Status: Acute Assessment and Plan: 03/06/24: * Likely secondary to hypernatremia * Continue Q4 neuro checks 03/07/24: * Continue neuro checks * Nephrology consulted 03/08/24: * No change to curret treatment plan (4) Type 2 diabetes mellitus: Code(s): E11.9 - Type 2 diabetes mellitus without complications Status: Chronic Assessment and Plan: 03/06/24: * basal insulin. * sliding scale insulin * Accu-Cheks * hypoglycemic protocol * able to resume tube feeds today per dietary 03/07/24: * BG 148-150 * No change to current treatment plan 03/08/24: * No change to current treatment plan 03/09/24: * Blood glucose ranging 206-231 * Continue bolus feeds with water flushes * Sliding scale insulin change to moderate dose * Continue Lantus 8 units at bedtime (5) Hypertension: Code(s): I10 - Essential (primary) hypertension Status: Chronic Assessment and Plan: 03/06/24: * Continue home meds * Monitor 03/07/24: * B/P ranging 124/64-145/66 * Continue with current treatment plan 03/08/24: * No change to current treatment plan (6) Transaminitis: Code(s): R74.01 - Elevation of levels of liver transaminase levels Status: Acute Assessment and Plan: 03/09/24: * AST 681, ALT 668 * Likely d
--- NOTE | 2024-03-09 07:29 | PM.IMPN ---
Progress Note: A&P Assessment and Plan (1) Hypernatremia: Code(s): E87.0 - Hyperosmolality and hypernatremia Status: Acute Assessment and Plan: 03/06/24: Switch back to D5W as she was receiving normal saline overnight due to sodium drop to 146 at 1630 believe this may be a false draw as her sodium climbed back up quickly overnight Serial sodiums Current 159, slowly decreasing continue to monitor 03/07/24: Na+ 148 today ? 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 Will obtain urine sodium, urine osmolarity, serum osmolarity Continue with free water flushes, nephrology increased free water flushes to 200ml/q4h Consult placed to nephrology for further assistance Strict I and O Continue to monitor neuro status Continue to trend labs 03/08/24: Sodium today is 144 Urine sodium, urine osmolarity, serum osmolarity are still pending Continue with free water flushes at 200 ml/q4h Nephrology following Continue strict I&O Cortisol level was 8.55 Continue to trend labs Continue neuro checks 03/09/24: Sodium level today is 141 Urine osmolarity, serum osmolarity are still pending Urine sodium 56 Continue with current treatment plan (2) Urinary tract infection: Code(s): N39.0 - Urinary tract infection, site not specified Status: Acute Assessment and Plan: 03/06/24: Source of fever presumably urinary tract infection. ceftriaxone, pending urine culture. prelim culture showing gram neg bacilli BC pending 03/07/24: Urine culture still showing Klebsiella pneumoniae Blood culture showing no growth on preliminary read Stop Rocephin and start Levofloxacin 03/08/24: Blood cultures showing no growth preliminary read Continue with levofloxacin 03/09/24: Blood cultures showing no growth on preliminary read Levaquin discontinued and patient was transitioned on to Bactrim due to increased liver enzymes AST 681, ALT 668 (3) Metabolic encephalopathy: Code(s): G93.41 - Metabolic encephalopathy Status: Acute Assessment and Plan: 03/06/24: Likely secondary to hypernatremia Continue Q4 neuro checks 03/07/24: Continue neuro checks Nephrology consulted 03/08/24: No change to curret treatment plan (4) Type 2 diabetes mellitus: Code(s): E11.9 - Type 2 diabetes mellitus without complications Status: Chronic Assessment and Plan: 03/06/24: basal insulin. sliding scale insulin Accu-Cheks hypoglycemic protocol able to resume tube feeds today per dietary 03/07/24: BG 148-150 No change to current treatment plan 03/08/24: No change to current treatment plan 03/09/24: Blood glucose ranging 206-231 Continue bolus feeds with water flushes Sliding scale insulin change to moderate dose Continue Lantus 8 units at bedtime (5) Hypertension: Code(s): I10 - Essential (primary) hypertension Status: Chronic Assessment and Plan: 03/06/24: Continue home meds Monitor 03/07/24: B/P ranging 124/64-145/66 Continue with current treatment plan 03/08/24: No change to current treatment plan (6) Transaminitis: Code(s): R74.01 - Elevation of levels of liver transaminase levels Status: Acute Assessment and Plan: 03/09/24: AST 681, ALT 668 Likely due to use of Levaquin, patient was switched to Bactrim today Continue to trend Time Spent With Patient Time with patient: Greater than 35 minutes Subjective Date/time seen: 03/09/24 07:29 Interval history: 03/07/24: This is a 73-year-old female with a significant past medical history 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 Workup in the hospital included a head CT which shown a 7 mm leftward midline shift
[2024-03-09] MEDS: SULFAMETHOXAZOLE/TRIMETHOPRIM 800/160 MG DS TABLET 1 TAB PO ×2 (09:30→20:51)
[2024-03-09] MEDS: OLANZapine 5 MG TABLET 10 MG FEED TUBE (09:30)
[2024-03-09] MEDS: MIRTAZAPINE 7.5 MG TABLET FEED TUBE (09:30)
[2024-03-09] MEDS: amLODIPine BESYLATE 5 MG TABLET 10 MG FEED TUBE (09:30)
[2024-03-09] MEDS: AMANTADINE HCL 100 MG CAPSULE FEED TUBE ×2 (09:30→17:25)
[2024-03-09 12:11] LABS: Glucose Point of Care 201 mg/dl (65-105)
--- NOTE | 2024-03-09 13:18 | P.PNNP_ITS ---
Progress Note: A&P Assessment and Plan (1) Hypernatremia: Code(s): E87.0 - Hyperosmolality and hypernatremia Status: Acute Assessment and Plan: * slow improvement if not resolving * continue free water flushes * concern is for diabetes insipidus (seems less likely given evidence to date): * no evidence of polyuria (usually UOP > 3L) * serum and urine osmolality pending * urine specific gravity normal * cortisol level lowish - consider cosyntropin stim test * prolactin, FSH, LH results noted * copectin pending * weaned off D5W IVFs * follow repeat sodium levels (2) Urinary tract infection: Code(s): N39.0 - Urinary tract infection, site not specified Status: Acute Assessment and Plan: * admission UA suggestive * urine culture with Klebsiella * on antibiotics (3) Altered mental status: Code(s): R41.82 - Altered mental status, unspecified Status: Acute Assessment and Plan: * due to hypernatremia versus UTI versus both?? * follow mentation with ongoing treatment (4) Hypertension: Code(s): I10 - Essential (primary) hypertension Status: Chronic Assessment and Plan: * reasonable control * follow trend of hemodynamics (5) Type 2 diabetes mellitus: Code(s): E11.9 - Type 2 diabetes mellitus without complications Status: Chronic Assessment and Plan: * follow accu-cheks * glycemic control per hospitalists Not much else to add at this time -- since sodium has been stable, will continue to follow from a distance. Subjective Date/time seen: 03/09/24 13:18 Interval history: Follow-up for acute hypernatremia. Sodium remains stable if not improved in the last 24 - 48 hours with current interventions/therapy; still remains minimally interactive at the time of my visit; no other acute issues/events overnight or earlier this morning. Exam Narrative: General: elderly female in NAD Heart: normal S1 and S2; no rub Lungs: clear to auscultation Abdomen: soft, nontender, nondistended, positive bowel sounds Extremities: no cyanosis or clubbing; no edema Skin: warm and intact Objective Data Vital Signs Vital Signs: Vital Signs Temp Pulse Resp BP Pulse Ox O2 Del Method 03/09/24 08:04 99 03/09/24 09:30 Room Air 03/09/24 05:48 98.1 F 96 17 128/63 98 03/09/24 04:00 97 03/09/24 00:00 106 H 03/08/24 22:00 98 F 100 17 100/60 99 03/08/24 20:00 104 H 03/08/24 16:00 108 H Intake/Output Intake/Output: Intake & Output 03/06/24 03/07/24 03/08/24 03/09/24 23:59 23:59 23:59 23:59 Intake Total 50 4509.3 1919.7 1240 Output Total 1350 1350 2100 600 Balance -1300 3159.3 -180.3 640 Meds/Results Medications: Active Medications Generic Name Dose Route Start Last Admin Trade Name Freq PRN Reason Stop Dose Admin Acetaminophen 650 mg 03/04/24 12:52 03/05/24 20:42 Acetaminophen Elixir 325 Mg/10.15 Ml Udc FEED TUBE 650 mg Q4H PRN Administration Mild Pain (1-3) or Fever Amantadine HCl 100 mg 03/04/24 17:30 03/09/24 09:30 Amantadine Hcl
--- NOTE | 2024-03-09 13:18 | PM.PNNEP ---
Progress Note: A&P Assessment and Plan (1) Hypernatremia: Code(s): E87.0 - Hyperosmolality and hypernatremia Status: Acute Assessment and Plan: slow improvement if not resolving continue free water flushes concern is for diabetes insipidus (seems less likely given evidence to date): no evidence of polyuria (usually UOP > 3L) serum and urine osmolality pending urine specific gravity normal cortisol level lowish - consider cosyntropin stim test prolactin, FSH, LH results noted copectin pending weaned off D5W IVFs follow repeat sodium levels (2) Urinary tract infection: Code(s): N39.0 - Urinary tract infection, site not specified Status: Acute Assessment and Plan: admission UA suggestive urine culture with Klebsiella on antibiotics (3) Altered mental status: Code(s): R41.82 - Altered mental status, unspecified Status: Acute Assessment and Plan: due to hypernatremia versus UTI versus both?? follow mentation with ongoing treatment (4) Hypertension: Code(s): I10 - Essential (primary) hypertension Status: Chronic Assessment and Plan: reasonable control follow trend of hemodynamics (5) Type 2 diabetes mellitus: Code(s): E11.9 - Type 2 diabetes mellitus without complications Status: Chronic Assessment and Plan: follow accu-cheks glycemic control per hospitalists Not much else to add at this time -- since sodium has been stable, will continue to follow from a distance. Subjective Date/time seen: 03/09/24 13:18 Interval history: Follow-up for acute hypernatremia. Sodium remains stable if not improved in the last 24 - 48 hours with current interventions/therapy; still remains minimally interactive at the time of my visit; no other acute issues/events overnight or earlier this morning. Exam Narrative: General: elderly female in NAD Heart: normal S1 and S2; no rub Lungs: clear to auscultation Abdomen: soft, nontender, nondistended, positive bowel sounds Extremities: no cyanosis or clubbing; no edema Skin: warm and intact Objective Data Vital Signs Vital Signs: Vital Signs Temp Pulse Resp BP Pulse Ox O2 Del Method 03/09/24 08:04 99 03/09/24 09:30 Room Air 03/09/24 05:48 98.1 F 96 17 128/63 98 03/09/24 04:00 97 03/09/24 00:00 106 H 03/08/24 22:00 98 F 100 17 100/60 99 03/08/24 20:00 104 H 03/08/24 16:00 108 H Intake/Output Intake/Output: Intake & Output 03/06/24 03/07/24 03/08/24 03/09/24 23:59 23:59 23:59 23:59 Intake Total 50 4509.3 1919.7 1240 Output Total 1350 1350 2100 600 Balance -1300 3159.3 -180.3 640 Meds/Results Medications: Active Medications Generic Name Dose Route Start Last Admin Trade Name Freq PRN Reason Stop Dose Admin Acetaminophen 650 mg 03/04/24 12:52 03/05/24 20:42 Acetaminophen Elixir 325 Mg/10.15 Ml Udc FEED TUBE 650 mg Q4H PRN Administration Mild Pain (1-3) or Fever Amantadine HCl 100 mg 03/04/24 17:30 03/09/24 09:30 Amantadine Hcl 100 Mg Capsule FEED TUBE 100 mg BID DEBBIE Administration Amlodipine Besylate 10 mg 03/05/24 09:00 03/09/24 09:30 Amlodipine Besylate 5 Mg Tablet FEED TUBE 10 mg DAILY DEBBIE Administration Atorvastatin Calcium 40 mg 03/04/24 21:00 03/08/24 20:16 Atorvastatin 40 Mg Tablet FEED TUBE 40 mg HS DEBBIE Administration Bisacodyl 10 mg 03/04/24 17:06 Bisacodyl 10 Mg Suppository RECTAL DAILY PRN Constipation Dextrose 12.5 gm 03/04/24 17:05 Dextrose 50% 25 Gm/50 Ml Syringe IV PUSH PRN PRN Hypoglycemia Protocol Glucagon 1 mg 03/04/24 17:05 Glucagon For Inj 1 Mg Vial IM PRN PRN Hypoglycemia Protocol Glucose 15 gm 03/04/24 17:05 Glucose Oral Gel 15 Gm Of Glucse In 37.5 Gm Tube PO PRN PRN Hypoglycemia Protocol D
[2024-03-09 16:18] LABS: Osmolality, Urine 388 mOsm/kg (50-1200)
[2024-03-09] MEDS: INSULIN GLARGINE (*BKC) 100 UNITS/ML 8 UNITS SUB-Q (17:25)
[2024-03-09 17:51] LABS: Glucose Point of Care 192 mg/dl (65-105)
[2024-03-09 19:38] LABS: FSH 23.6 mIU/mL; LH 7.8 mIU/mL; Prolactin 25.8 ng/mL
[2024-03-09] MEDS: ATORVASTATIN 40 MG TABLET FEED TUBE (20:51)
[2024-03-10] VITALS (10 sets, daily range): BP systolic 103–143; BP diastolic 52–79; PULSE 92–107; RESP 12–18; TEMP 36.6–36.9; O2SAT 96–99
[2024-03-10 00:03] LABS: Glucose Point of Care 278 mg/dl (65-105)
[2024-03-10 05:30] LABS: Glucose Point of Care 223 mg/dl (65-105)
[2024-03-10 06:24] LABS: Basophils Percent Auto 0.7 % (0.2-1.2); Eosinophils Absolute Auto 0.1 K/mm3 (0-0.3); Eosinophils Percent Auto 1.4 % (0-4.4); Hematocrit 27.8 % (37.0-47.0); Hemoglobin 8.7 g/dL (12.0-15.0); Immature Granulocyte Absolute 0.22 K/mm3 (0.00-0.031); Immature Granulocyte Percent A 3.9 % (0-0.5); Lymphocytes Absolute Auto 1.41 K/mm3 (0.9-3.2); Lymphocytes Percent Auto 24.7 % (18.3-44.2); Mean Corpuscular HGB Conc 31.3 g/dl (32-36); Mean Corpuscular Hemoglobin 28.9 pg (26-34); Mean Corpuscular Volume 92.4 fl (80-100); Monocytes Absolute Auto 0.5 K/mm3 (0.1-0.6); Monocytes Percent Auto 8.4 % (2.6-8.5); Neutrophils Absolute Auto 3.5 K/mm3 (1.3-6.7); Neutrophils Percent Auto 60.9 % (45.5-73.1); Nucleated Red Blood Cells Perc 0.4 % (0.0-0.2); Platelet Count Result 187 k/mm3 (150-375); Red Blood Count 3.01 M/mm3 (4.2-5.4); Red Cell Distribution Width 13.7 % (11.5-14.5); White Blood Count 5.7 K/mm3 (4.5-10.0)
[2024-03-10 06:44] LABS: Albumin Level 3.5 g/dL (3.5-5.1); Alkaline Phosphatase 269 U/L (38-126); Anion Gap 5 mmol/L (4-12); Bilirubin,Total 0.5 mg/dL (0.2-1.3); Blood Urea Nitrogen 18 mg/dL (7-17); Calcium 9.1 mg/dL (8.4-10.2); Carbon Dioxide 28 mmol/L (22-30); Chloride 107 mmol/L (98-107); Estimated CRCL calculation 46 ml/min; Estimated Glomerular Filt Rate > 60; Glucose 218 mg/dL (65-110); Potassium 4.1 mmol/L (3.4-5.0); Sodium 140 mmol/L (137-145)
[2024-03-10 06:57] LABS: Alanine Aminotransferase 1268 U/L (6-35); Aspartate Amino Transferase 1306 U/L (14-36)
--- NOTE | 2024-03-10 07:08 | P.PNIM_ITS ---
Progress Note: A&P Assessment and Plan (1) Hypernatremia: Code(s): E87.0 - Hyperosmolality and hypernatremia Status: Acute Assessment and Plan: 03/06/24: * Switch back to D5W as she was receiving normal saline overnight due to sodium drop to 146 at 1630 * believe this may be a false draw as her sodium climbed back up quickly overnight * Serial sodiums * Current 159, slowly decreasing * continue to monitor 03/07/24: * Na+ 148 today * ? 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 * Will obtain urine sodium, urine osmolarity, serum osmolarity * Continue with free water flushes, nephrology increased free water flushes to 200ml/q4h * Consult placed to nephrology for further assistance * Strict I and O * Continue to monitor neuro status * Continue to trend labs 03/08/24: * Sodium today is 144 * Urine sodium, urine osmolarity, serum osmolarity are still pending * Continue with free water flushes at 200 ml/q4h * Nephrology following * Continue strict I&O * Cortisol level was 8.55 * Continue to trend labs * Continue neuro checks 03/09/24: * Sodium level today is 141 * Urine osmolarity, serum osmolarity are still pending * Urine sodium 56 * Continue with current treatment plan 03/10/24: * Sodium is 140 today * Urine osmolarity 388, serum osmolarity 307, urine sodium 56, sodium level on the was 150 * Continue with current treatment (2) Urinary tract infection: Code(s): N39.0 - Urinary tract infection, site not specified Status: Acute Assessment and Plan: 03/06/24: * Source of fever presumably urinary tract infection. * ceftriaxone, pending urine culture. * prelim culture showing gram neg bacilli * BC pending 03/07/24: * Urine culture still showing Klebsiella pneumoniae * Blood culture showing no growth on preliminary read * Stop Rocephin and start Levofloxacin 03/08/24: * Blood cultures showing no growth preliminary read * Continue with levofloxacin 03/09/24: * Blood cultures showing no growth on preliminary read * Levaquin discontinued and patient was transitioned on to Bactrim due to increased liver enzymes * AST 681, ALT 668 03/10/24: * Blood cultures are showing no growth on final read * Continue with Bactrim * Liver enzymes continued to rise despite switching to Bactrim yesterday * Hepatitis panel negative, lipase within normal limits, and ultrasound of the abdomen was negative (3) Metabolic encephalopathy: Code(s): G93.41 - Metabolic encephalopathy Status: Acute Assessment and Plan: 03/06/24: * Likely secondary to hypernatremia * Continue Q4 neuro checks 03/07/24: * Continue neuro checks * Nephrology consulted 03/08/24: * No change to curret treatment plan (4) Type 2 diabetes mellitus: Code(s): E11.9 - Type 2 diabetes mellitus without complications Status: Chronic Assessment and Plan: 03/06/24: * basal insulin. * sliding scale insulin * Accu-Cheks * hypoglycemic protocol * able to resume tube feeds today per dietary 03/07/24: * BG 148-150 * No change to current treatment plan 03/08/24: * No change to current treatment plan 03/09/24: * Blood glucose ranging 206-231 * Continue bolus feeds with water flushes * Sliding scale insulin change to moderate dose * Continue Lantus 8 units at bedtime 03/10/24: * Blood glucose ranging 218-278 * Sliding scale insulin ch
--- NOTE | 2024-03-10 07:08 | PM.IMPN ---
Progress Note: A&P Assessment and Plan (1) Hypernatremia: Code(s): E87.0 - Hyperosmolality and hypernatremia Status: Acute Assessment and Plan: 03/06/24: Switch back to D5W as she was receiving normal saline overnight due to sodium drop to 146 at 1630 believe this may be a false draw as her sodium climbed back up quickly overnight Serial sodiums Current 159, slowly decreasing continue to monitor 03/07/24: Na+ 148 today ? 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 Will obtain urine sodium, urine osmolarity, serum osmolarity Continue with free water flushes, nephrology increased free water flushes to 200ml/q4h Consult placed to nephrology for further assistance Strict I and O Continue to monitor neuro status Continue to trend labs 03/08/24: Sodium today is 144 Urine sodium, urine osmolarity, serum osmolarity are still pending Continue with free water flushes at 200 ml/q4h Nephrology following Continue strict I&O Cortisol level was 8.55 Continue to trend labs Continue neuro checks 03/09/24: Sodium level today is 141 Urine osmolarity, serum osmolarity are still pending Urine sodium 56 Continue with current treatment plan 03/10/24: Sodium is 140 today Urine osmolarity 388, serum osmolarity 307, urine sodium 56, sodium level on the was 150 Continue with current treatment (2) Urinary tract infection: Code(s): N39.0 - Urinary tract infection, site not specified Status: Acute Assessment and Plan: 03/06/24: Source of fever presumably urinary tract infection. ceftriaxone, pending urine culture. prelim culture showing gram neg bacilli BC pending 03/07/24: Urine culture still showing Klebsiella pneumoniae Blood culture showing no growth on preliminary read Stop Rocephin and start Levofloxacin 03/08/24: Blood cultures showing no growth preliminary read Continue with levofloxacin 03/09/24: Blood cultures showing no growth on preliminary read Levaquin discontinued and patient was transitioned on to Bactrim due to increased liver enzymes AST 681, ALT 668 03/10/24: Blood cultures are showing no growth on final read Continue with Bactrim Liver enzymes continued to rise despite switching to Bactrim yesterday Hepatitis panel negative, lipase within normal limits, and ultrasound of the abdomen was negative (3) Metabolic encephalopathy: Code(s): G93.41 - Metabolic encephalopathy Status: Acute Assessment and Plan: 03/06/24: Likely secondary to hypernatremia Continue Q4 neuro checks 03/07/24: Continue neuro checks Nephrology consulted 03/08/24: No change to curret treatment plan (4) Type 2 diabetes mellitus: Code(s): E11.9 - Type 2 diabetes mellitus without complications Status: Chronic Assessment and Plan: 03/06/24: basal insulin. sliding scale insulin Accu-Cheks hypoglycemic protocol able to resume tube feeds today per dietary 03/07/24: BG 148-150 No change to current treatment plan 03/08/24: No change to current treatment plan 03/09/24: Blood glucose ranging 206-231 Continue bolus feeds with water flushes Sliding scale insulin change to moderate dose Continue Lantus 8 units at bedtime 03/10/24: Blood glucose ranging 218-278 Sliding scale insulin change to high-dose Will increase Lantus 12 units bedtime (5) Hypertension: Code(s): I10 - Essential (primary) hypertension Status: Chronic Assessment and Plan: 03/06/24: Continue home meds Monitor 03/07/24: B/P ranging 124/64-145/66 Continue with current treatment plan 03/08/24: No change to current treatment plan (6) Transaminitis: Code(s): R74.01 - Elevation of levels of liver transaminase levels Status: Acute Assessment and Plan: 03/09/24: AST 681, ALT 668 Likely due to use of Levaquin, patient was swi
[2024-03-10 07:19] LABS: Lipase 84 U/L (23-300)
[2024-03-10 08:48] LABS: Hepatitis B Surface Antigen Negative (Negative)
[2024-03-10 08:54] LABS: HAV RESULT Negative (Negative); Hepatitis B Core IgM Result Negative (Negative)
[2024-03-10 09:05] LABS: Hepatitis C Virus Antibody Negative (Negative)
[2024-03-10 09:14] LABS: Glucose Point of Care 189 mg/dl (65-105)
[2024-03-10] MEDS: AMANTADINE HCL 100 MG CAPSULE FEED TUBE ×2 (09:14→16:59)
[2024-03-10] MEDS: OLANZapine 5 MG TABLET 10 MG FEED TUBE (09:15)
[2024-03-10] MEDS: amLODIPine BESYLATE 5 MG TABLET 10 MG FEED TUBE (09:15)
[2024-03-10] MEDS: MIRTAZAPINE 7.5 MG TABLET FEED TUBE (09:15)
[2024-03-10] MEDS: SULFAMETHOXAZOLE/TRIMETHOPRIM 800/160 MG DS TABLET 1 TAB PO ×2 (09:16→20:18)
--- NOTE | 2024-03-10 10:27 | PCNFU ---
Nutrition Follow-Up Complete: Inadequate Enteral Nutrition Infusion as related to inadequate enteral volume compared to estimated requirements as evidenced by no tube feeding documented given. goal: Meet estimated nutritional needs. Patient is meeting current diet orders. Will continue current goal. Pt current nutrition is Glucerna 320 ml Bolus feedings 4 x per day. Last recorded weight is 60.3 kg,no new weight to report. Bowel Motility:+BM reported /3 Labs Reviewed:Glu 218, BUN 18, Hct 27.8,Hgb 8.7 Meds Noted:NovoLog, Lantus, Remeron, Rocephin, Lipitor Skin: WNL Additional Notes: Nutation follow up for tube feedings. Spoke with nursing today, patient is tolerating bolus feedings of Glucerna 1.2 320 ml at 0800,1200, 1600, 2000 hrs. Flush 200 ml q 4 hours. Tube feedings are providing 1536 kcals/77 gms protein/1030 ml water. Meeting 100% kcal and protein needs. Agree with diet orders. Will monitor weight, labs, skin, meds, tube feeding tolerance every Wednesday and Wednesday.
[2024-03-10 11:48] LABS: Glucose Point of Care 284 mg/dl (65-105)
[2024-03-10] MEDS: INSULIN ASPART (*BKC) 100 UNITS/ML SUB-Q ×3 (12:18→20:17)
[2024-03-10] MEDS: INSULIN GLARGINE (*BKC) 100 UNITS/ML 12 UNITS SUB-Q (17:20)
[2024-03-10 17:22] LABS: Glucose Point of Care 223 mg/dl (65-105)
[2024-03-10 20:16] LABS: Glucose Point of Care 289 mg/dl (65-105)
[2024-03-10] MEDS: ATORVASTATIN 40 MG TABLET FEED TUBE (20:18)
[2024-03-11] VITALS: PULSE 104
[2024-03-11 00:27] LABS: Glucose Point of Care 252 mg/dl (65-105)
[2024-03-11 04:00] VITALS: PULSE 102
[2024-03-11 04:45] VITALS: BP 105/64; PULSE 100; RESP 17; TEMP 36.9; O2SAT 100
[2024-03-11 05:21] LABS: Glucose Point of Care 242 mg/dl (65-105)
[2024-03-11 05:53] VITALS: BP 105/64; PULSE 79; RESP 17; TEMP 36.5; O2SAT 97
[2024-03-11 07:39] LABS: Basophils Percent Auto 0.3 % (0.2-1.2); Eosinophils Absolute Auto 0.1 K/mm3 (0-0.3); Eosinophils Percent Auto 1.2 % (0-4.4); Hematocrit 28.6 % (37.0-47.0); Hemoglobin 9.1 g/dL (12.0-15.0); Immature Granulocyte Absolute 0.19 K/mm3 (0.00-0.031); Mean Corpuscular HGB Conc 31.8 g/dl (32-36); Mean Corpuscular Hemoglobin 28.9 pg (26-34); Mean Corpuscular Volume 90.8 fl (80-100); Monocytes Absolute Auto 0.9 K/mm3 (0.1-0.6); Monocytes Percent Auto 9.2 % (2.6-8.5); Neutrophils Absolute Auto 6.5 K/mm3 (1.3-6.7); Neutrophils Percent Auto 68.3 % (45.5-73.1); Nucleated Red Blood Cells Perc 0.5 % (0.0-0.2); Platelet Count Result 232 k/mm3 (150-375); Red Blood Count 3.15 M/mm3 (4.2-5.4); Red Cell Distribution Width 13.8 % (11.5-14.5); White Blood Count 9.5 K/mm3 (4.5-10.0)
[2024-03-11 07:51] LABS: Albumin Level 3.8 g/dL (3.5-5.1); Alkaline Phosphatase 267 U/L (38-126); Anion Gap 5 mmol/L (4-12); Aspartate Amino Transferase 458 U/L (14-36); Bilirubin,Total 0.5 mg/dL (0.2-1.3); Blood Urea Nitrogen 20 mg/dL (7-17); Calcium 9.5 mg/dL (8.4-10.2); Carbon Dioxide 27 mmol/L (22-30); Chloride 103 mmol/L (98-107); Estimated CRCL calculation 41 ml/min; Estimated Glomerular Filt Rate > 60; Glucose 239 mg/dL (65-110); Potassium 4.9 mmol/L (3.4-5.0); Sodium 135 mmol/L (137-145)
[2024-03-11 08:00] VITALS: PULSE 102
[2024-03-11 08:16] LABS: Glucose Point of Care 239 mg/dl (65-105)
[2024-03-11] MEDS: OLANZapine 5 MG TABLET 10 MG FEED TUBE (08:33)
[2024-03-11] MEDS: MIRTAZAPINE 7.5 MG TABLET FEED TUBE (08:33)
[2024-03-11] MEDS: amLODIPine BESYLATE 5 MG TABLET 10 MG FEED TUBE (08:33)
[2024-03-11] MEDS: SULFAMETHOXAZOLE/TRIMETHOPRIM 800/160 MG DS TABLET 1 TAB PO (08:34)
[2024-03-11] MEDS: INSULIN ASPART (*BKC) 100 UNITS/ML SUB-Q (08:35)
[2024-03-11] MEDS: AMANTADINE HCL 100 MG CAPSULE FEED TUBE (08:43)
[2024-03-11 08:45] VITALS: BP 117/67
[2024-03-11 09:14] LABS: Alanine Aminotransferase 889 U/L (6-35)
--- NOTE | 2024-03-11 09:41 | PM.DS ---
DS: Admitting Diagnosis Discharge Date 03/11/24 Admitting Diagnosis Hypernatremia Acute kidney injury Urinary tract infection Metabolic encephalopathy Type 2 diabetes mellitus Hypertension DS: Discharge Diagnosis Discharge Diagnosis (1) Hypernatremia: Code(s): E87.0 - Hyperosmolality and hypernatremia Status: Acute (2) Urinary tract infection: Code(s): N39.0 - Urinary tract infection, site not specified Status: Acute (3) Metabolic encephalopathy: Code(s): G93.41 - Metabolic encephalopathy Status: Acute (4) Type 2 diabetes mellitus: Code(s): E11.9 - Type 2 diabetes mellitus without complications Status: Chronic (5) Hypertension: Code(s): I10 - Essential (primary) hypertension Status: Chronic (6) Transaminitis: Code(s): R74.01 - Elevation of levels of liver transaminase levels Status: Acute DS: Summary Hospital Course Reason for hospitalization: Hypernatremia Acute kidney injury Urinary tract infection Metabolic encephalopathy Type 2 diabetes mellitus Hypertension Hospital Course: 03/07/24: This is a 73-year-old female with a significant past medical history hemorrhagic stroke in January of 2024 with left-sided residual weakness and cognitive deficits who presented to the hospital on 03/04/2024 from [facility] for evaluation of a fever.? Workup in the hospital included a head CT which shown a 7 mm leftward midline shift, hyperdensity involving the right basal ganglia and right temporal parietal region which may be hematoma.? Chest x-ray shows mild left and minimal right basilar infiltrate or atelectasis.? Abdomen pelvis CT showed hepatic steatosis, mild diffuse thickening of urinary bladder wall, cystitis is not excluded, fat containing left inguinal and umbilical or hernias, compression fracture deformity of T10, L3, and L5.? A UA was performed which showed 1+ urine protein, positive nitrate, 3+ leukocyte, greater than 100 urine wbc's, 4+ urine bacteria.? Initial Labs revealed a normal white blood count of 8.8, hemoglobin 9.7, sodium 166, chloride 131, creatinine 1.5, EGFR 41, lactic acid 2.1, ALT 36.? Urine culture showing Klebsiella pneumoniae.? Blood cultures are showing no growth on preliminary read.? Patient was started on Rocephin and we will switch to levofloxacin today.? We will also get Nephrology on board for her hypernatremia which could likely be central diabetes insipidus considering hemorrhagic stroke history in January of 2024.? We will go ahead and obtain serum osmolarity, urine osmolarity, and urine sodium. On examination today patient is alert and somewhat cooperative today. There is a sitter at the bedside with her as she is confused. Labs today shown Hgb 8.8, Na+ 150, Glucose 179-199. Free water flushes increased to 200 ml q 4 hour per Nephrology. 03/08/24: Sodium is 144, random cortisol 8.5.? Blood cultures are still showing no growth to date on preliminary read.? She will continue with levofloxacin for her urinary tract infection.? Dietary consulted for bolus tube feeding. 03/09/24: Patient resting in bed, minimally interactive with me today. Labs today show hemoglobin of 9.0, sodium is down to 141, blood sugars ranging 206-231, AST elevated at 681, ALT 668.? Elevation in her liver enzymes can be caused by use of Levaquin we will go ahead and switch that the Bactrim today.? We will continue with bolus feeds and free water flushes.? Urine osmolarity and serum osmolarity are still pending. Nephrology following. 03/10/24: No issues overnight. Labs today reveal hemoglobin 8.7, AST 1306, ALT 1268, alk-phos 269.? Serum osmolarity 307, urine osmolarity 388.? Blood cultures are showing no growth read.? We went ahead and checked hepatitis panel, lipase, and ultrasound the abdomen today to rule out any obstruction or other cause to why her liver enzymes are now elevated, however Lipase was normal, hepatitis panel was negative and US of the abdomen w
[2024-03-14 14:28] LABS: Copeptin 14.9 pmol/L (< OR = 13.7)
== END 2024-03-11 11:15 | DRG 871 ==
LOC: ANHED 12:36 → ANH2MED 13:19
PROVIDERS: Internal Medicine; Internal Medicine Nephrology; Nurse Practitioner; Nurse Practitioner Acute Care; Physician Assistant; Admitting Provider Hospitalist; Emergency Provider Physician Assistant; Visit Provider Internal Medicine
DX: A41.9 Sepsis, unspecified organism (principal); G93.41 Metabolic encephalopathy; N39.0 Urinary tract infection, site not specified; E87.0 Hyperosmolality and hypernatremia; N17.9 Acute kidney failure, unspecified; I69.354 Hemiplegia and hemiparesis following cerebral infarction affecting left non-dominant side; R65.20 Severe sepsis without septic shock; B96.1 Klebsiella pneumoniae [K. pneumoniae] as the cause of diseases classified elsewhere; E11.9 Type 2 diabetes mellitus without complications; D64.9 Anemia, unspecified; Z85.3 Personal history of malignant neoplasm of breast; I69.319 Unspecified symptoms and signs involving cognitive functions following cerebral infarction; Z90.710 Acquired absence of both cervix and uterus; Z98.49 Cataract extraction status, unspecified eye
CPT/HCPCS: 36415; 71045; 74177; 76705; 80048; 80053; 80074; 81001; 81003; 82533; 82570; 82948; 83001; 83002; 83036; 83605; 83690; 83735; 83930; 83935; 84145; 84146; 84295; 84300; 84443; 84540; 85025; 85027; 85610; 85730; 86140; 86255; 87040; 87077; 87086; 87088; 87186; 87637; 92610; 96361; 96374; 99285; A9270; G0378; J0696; J1815; J3480; J7030; J7040; J7070; Q9967